=== PATIENT | male | born 1980 | race Caucasian/White ===

== ENCOUNTER 2018-04-17 18:55 | Emergency (ER) | payer MEDICAID ==
[~2018-04-17] VITALS: Ht 167.6 cm; Wt 79.2 kg
[~2018-04-17 18:55] MED LIST: CARB200T8; FLUO-84; GABA600T13; HYDR-4383 PO; IBUP-1986 PO
[2018-04-17 19:06] VITALS: BP 133/88
--- NOTE | 2018-04-17 21:05 | NUR ---
[facility] #[id number]
--- NOTE | 2018-04-17 21:05 | NUR ---
NO RESPONSE FROM LOBBY AFTER 3 ATTEMPTS TO ROOM, CALL MADE TO NUMBER ON FILE. DR CHAMPAGNE INFORMED OF ISABEL PAPPAS CURRENTLY BEING CONTACTED FOR [facility].
== END 2018-04-17 21:48 | disposition left against medical advice (07) ==
LOC: ER 18:55
DX: F43.10 Post-traumatic stress disorder, unspecified (principal); Z53.21 Procedure and treatment not carried out due to patient leaving prior to being seen by health care provider

== ENCOUNTER 2018-10-07 03:24 | Inpatient (IN) | payer MEDICAID ==
[~2018-10-07] VITALS: Ht 175.3 cm; Wt 95.5 kg
[2018-10-07] MEDS ORDERED: normal saline 1000ML IV soln IVB ONE ×2 (03:30→11:25)
[2018-10-07] MEDS ORDERED: LORazepam 2 mg/ml vial IV ONE ×2 (03:30→03:50)
[2018-10-07] MEDS ORDERED: OLANZapine **IM** 10 mg inj. IM ONE (03:40)
[2018-10-07 03:56] LABS: BASOPHILS % (AUTO) 0.3 % (0-1); EOSINOPHILS % (AUTO) 0.4 % (0-6); HEMATOCRIT 39.2 % (42.0-52.0); HEMOGLOBIN 13.4 g/dl (14.0-17.9); LYMPHOCYTES # (AUTO) 0.2 X10'3 (1.1-4.8); LYMPHOCYTES % (AUTO) 3.6 % (21-51); MEAN CORPUSCULAR HEMOGLOBIN 32.7 PG (27.0-31.0); MEAN CORPUSCULAR HGB CONC 34.1 g/dL (33.0-36.5); MEAN CORPUSCULAR VOLUME 95.9 FL (78-98); MEAN PLATELET VOLUME 8.5 FL (7.4-10.4); MONOCYTES # (AUTO) 0.1 X10'3 (0-0.9); MONOCYTES % (AUTO) 1.3 % (2-12); NEUTROPHILS # (AUTO) 4.4 X10'3 (1.8-7.7); NEUTROPHILS % (AUTO) 94.4 % (42-75); PLATELET COUNT 169 X10'3 (140-440); RED BLOOD COUNT 4.09 X10'6 (4.70-6.10); RED CELL DISTRIBUTION WIDTH 12.4 % (11.5-14.5); WHITE BLOOD COUNT 4.7 X10'3 (4.5-11.0)
[2018-10-07 04:12] LABS: ALANINE AMINOTRANSFERASE 123 U/L (12-78); ALBUMIN 3.2 G/DL (3.4-5.0); ALBUMIN/GLOBULIN RATIO 1.2 (1.1-1.5); ALKALINE PHOSPHATASE 141 IU/L (46-116); ANION GAP 14 (8-16); ASPARTATE AMINO TRANSFERASE 238 U/L (10-37); BILIRUBIN,TOTAL 1.2 MG/DL (0.1-1.0); BLOOD UREA NITROGEN 16 MG/DL (7-18); BUN/CREATININE RATIO 9.9 (5.4-32.0); CALCIUM 8.7 MG/DL (8.5-10.1); CHLORIDE 106 MMOL/L (99-107); CREATININE 1.61 MG/DL (0.60-1.10); GLUCOSE 65 MG/DL (70-104); POTASSIUM 3.3 MMOL/L (3.5-5.1); SODIUM 143 MMOL/L (135-145); TOTAL CARBON DIOXIDE 23.1 MMOL/L (24-32); TOTAL PROTEIN 5.9 G/DL (6.4-8.2); eGFR 48 ML/MIN
[2018-10-07 04:20] LABS: ETHANOL < 0.010 GM/DL (0.0-0.010); MAGNESIUM 1.6 MG/DL (1.5-2.4)
[2018-10-07] MEDS ORDERED: piperacillin/tazo 4.5gm/100ml 100 ML IV ONE (06:55)
[2018-10-07] MEDS ORDERED: piperacillin/tazo 4.5gm/100ml 100 ML IV SCH (06:55)
[2018-10-07 07:22] LABS: LIPASE 107 U/L (73-393)
[2018-10-07 07:27] LABS: PARTIAL THROMBOPLASTIN TIME 27 SECONDS (22-32)
[2018-10-07 08:38] LABS: CLARITY,URINE CLEAR (Clear); COLOR,URINE YELLOW (Yellow); GLUCOSE, URINE 100 mg/dl (Neg); KETONES,URINE NEGATIVE (Neg); LEUKOCYTE ESTERASE ,URINE NEGATIVE (Neg); NITRITES, URINE NEGATIVE (Neg); OCCULT BLOOD,URINE NEGATIVE (Neg); PROTEIN,URINE 100 mg/dl (Neg)
[2018-10-07 08:43] LABS: UA COLLECTION TYPE STRAIGHT CATH
[2018-10-07 08:44] LABS: AMORPHOUS URATES 1+; BACTERIA,URINE NONE SEEN /HPF (Neg); COARSE GRANULAR CAST 0-3 /LPF (NEGATIVE); MUCUS STRANDS FEW /LPF (Neg); RBC,URINE 0-2 /HPF (0-2); SPERM MODERATE /HPF (NEGATIVE); SQUAMOUS EPITHELIAL CELL,UR NONE SEEN /LPF (FEW); URINE AMPHETAMINE SCREEN POSITIVE (Neg); URINE BARBITUATE SCREEN NEGATIVE (Neg); URINE BENZODIAZEPINES SCREEN NEGATIVE (Neg); URINE CANNABINOID SCREEN POSITIVE (Neg); URINE COCAINE SCREEN NEGATIVE (Neg); URINE METHADONE SCREEN NEGATIVE (Neg); URINE OPIATE SCREEN POSITIVE (Neg); URINE PHENCYCLIDINE SCREEN NEGATIVE (Neg); WBC,URINE 0-4 /HPF (0-4)
[2018-10-07 08:55] LABS: ABG BASE EXCESS -0.3 mmol/L (-2.0-3.0); ABG HCO3 23.1 mmol/L (22.0-26.0); ABG PCO2 (T) 34.2 mmHg (35.0-45.0); ABG PH (T) 7.448 (7.350-7.450); ABG PO2 (T) 75.7 mmHg (83-108); ALLEN'S TEST Positive; FCOHb 0.8 % (0.5-1.5); FO2Hb 94.2 % (94-100); TOTAL HEMOGLOBIN 13.3 G/dl (14.0-17.9)
--- NOTE | 2018-10-07 11:07 | NUR ---
LP IN PROGRESS BY
[2018-10-07 12:30] LABS: GLUCOSE,CSF 88 MG/DL (40-75); TOTAL PROTEIN,CSF 34 MG/DL (15-45)
[2018-10-07 12:42] LABS: APPEARANCE,CSF CLEAR; CSF SUPERNATANT COLOR COLORLESS; CSF VOLUME 4.5 ML; TUBE# COUNTED 1
[2018-10-07 12:44] LABS: CSF RBC 62 /CU MM (0); CSF WBC CT 2 /CU MM (0-5)
[2018-10-07 12:45] LABS: APPEARANCE,CSF CLEAR; CSF RBC 47 /CU MM (0); CSF SUPERNATANT COLOR COLORLESS; CSF VOLUME 4.5 ML; CSF WBC CT 1 /CU MM (0-5); TUBE# COUNTED 4
[2018-10-07] MEDS ORDERED: magnesium hydroxide 30ml (MOM) UD suspension PO PRN (12:55)
[2018-10-07] MEDS ORDERED: mag hydrox/Alum hydrox/simeth 30ml oral suspension PO PRN (12:55)
[2018-10-07] MEDS ORDERED: ondansetron/PF 4mg/2ml inj IV PRN (12:55)
[2018-10-07] MEDS ORDERED: acetaminophen 325mg tablet PO PRN (12:55)
[2018-10-07 13:30] VITALS: BP 122/72
[2018-10-07] MEDS ORDERED: magnesium 2GM in 50ml NS 50 ML IV PRN (13:30)
[2018-10-07] MEDS ORDERED: potassium Cl 20 mEq SR tablet PO PRN ×2 (13:30)
[2018-10-07] MEDS ORDERED: acetaminophen 650mg rectal suppository RC PRN (13:30)
[2018-10-07] MEDS ORDERED: magnesium Cl slow-release 64mg tablet PO PRN (13:30)
[2018-10-07] MEDS ORDERED: magnesium 4gm in 100ml NS 100 ML IV PRN (13:30)
[2018-10-07] MEDS ORDERED: potassium CL 10mEq/100ml bag 100 ML IV PRN ×2 (13:30)
[2018-10-07] MEDS: normal saline 1000ml 1,000 ML IV SCH (14:27)
--- NOTE | 2018-10-07 18:29 | NUR ---
Problems reprioritized. Patient report given, questions answered & plan of care reviewed with [place] EL.
--- NOTE | 2018-10-07 20:24 | NUR ---
I received an order to restart pt's home Meds of Tegretol and gabapentin but the patient is unable to tell me the exact dose and frequency of the gabapentin. Pharmacy wants us to verify with the patient when he is awake or call his pharmacy. Do not start gabapentin until we have confirmation if it is prn or a give tid.
[2018-10-08] MEDS: normal saline 1000ml 1,000 ML IV SCH ×3 (03:41→19:49)
[2018-10-08] MEDS: carBAMazepine 100mg chewable tablet PO SCH ×3 (03:52→19:23)
[2018-10-08 05:48] LABS: BASOPHILS % (AUTO) 0.2 % (0-1); EOSINOPHILS # (AUTO) 0.1 X10'3 (0-0.9); HEMATOCRIT 38.1 % (42.0-52.0); HEMOGLOBIN 12.8 g/dl (14.0-17.9); LYMPHOCYTES # (AUTO) 1.6 X10'3 (1.1-4.8); LYMPHOCYTES % (AUTO) 13.3 % (21-51); MEAN CORPUSCULAR HEMOGLOBIN 32.4 PG (27.0-31.0); MEAN CORPUSCULAR HGB CONC 33.6 g/dL (33.0-36.5); MEAN CORPUSCULAR VOLUME 96.4 FL (78-98); MEAN PLATELET VOLUME 9.2 FL (7.4-10.4); MONOCYTES % (AUTO) 8.5 % (2-12); NEUTROPHILS # (AUTO) 9.1 X10'3 (1.8-7.7); PLATELET COUNT 134 X10'3 (140-440); RED BLOOD COUNT 3.95 X10'6 (4.70-6.10); RED CELL DISTRIBUTION WIDTH 13.3 % (11.5-14.5); WHITE BLOOD COUNT 11.9 X10'3 (4.5-11.0)
[2018-10-08 06:00] VITALS: BP 120/70
[2018-10-08 06:33] LABS: ALANINE AMINOTRANSFERASE 96 U/L (12-78); ALBUMIN 2.5 G/DL (3.4-5.0); ALKALINE PHOSPHATASE 86 IU/L (46-116); ANION GAP 5 (8-16); ASPARTATE AMINO TRANSFERASE 77 U/L (10-37); BILIRUBIN,DIRECT 0.3 MG/DL (0-0.3); BILIRUBIN,TOTAL 0.8 MG/DL (0.1-1.0); BLOOD UREA NITROGEN 17 MG/DL (7-18); CALCIUM 7.7 MG/DL (8.5-10.1); CHLORIDE 110 MMOL/L (99-107); CREATININE 0.81 MG/DL (0.60-1.10); GLUCOSE 89 MG/DL (70-104); MAGNESIUM 1.8 MG/DL (1.5-2.4); POTASSIUM 3.8 MMOL/L (3.5-5.1); SODIUM 143 MMOL/L (135-145); TOTAL CARBON DIOXIDE 27.9 MMOL/L (24-32); eGFR > 90 ML/MIN
[2018-10-08] MEDS: K and/or MAG REPLACEMENT MC SCH (08:00)
[2018-10-08] MEDS ORDERED: levetiracetam 250mg tablet PO SCH (11:10)
--- NOTE | 2018-10-08 11:19 | NUR ---
called 3rd floor mental health nurse for eval of pt, nurse stated that she did not know when dr marquis was going to arrive but she would let him know
[2018-10-08] MEDS ORDERED: FLUO10CA51 (16:03)
[2018-10-08] MEDS ORDERED: FLUO10CA18 PO (16:05)
[2018-10-08] MEDS ORDERED: DULO20CA50 PO (16:06)
[2018-10-08] MEDS ORDERED: NAPR-56 PO (16:08)
[2018-10-08] MEDS ORDERED: AMLO5TAB16 PO (16:11)
[2018-10-08 18:00] VITALS: BP 132/87
--- NOTE | 2018-10-08 18:30 | NUR ---
Received report from [place] EL, assumed care of patient with Saray EL.
[2018-10-08] MEDS ORDERED: FLUoxetine 10mg capsule PO ONE (18:40)
[2018-10-08] MEDS ORDERED: duloxetine 20mg capsule.DR PO ONE (18:40)
[2018-10-08] MEDS ORDERED: gabapentin 400mg capsule PO ONE ×2 (18:45→21:00)
--- NOTE | 2018-10-08 19:00 | NUR ---
Dr. Wray into see patient, bedside sitter discontinued. Addendum: 10/09/18 at 0611 by Gloria Man RN Amended: Links added.
--- NOTE | 2018-10-08 19:09 | NUR ---
Violeta reprioritized. Patient report given, questions answered & plan of care reviewed with SIENNA So.
[2018-10-08] MEDS: levetiracetam 250mg tablet PO SCH (19:22)
[2018-10-08] MEDS ORDERED: gabapentin 400mg capsule PO SCH (21:00)
[2018-10-08 22:00] VITALS: BP 131/85
[2018-10-09] MEDS: normal saline 1000ml 1,000 ML IV SCH ×2 (04:29→14:06)
[2018-10-09 06:00] VITALS: BP 120/70
--- NOTE | 2018-10-09 06:00 | NUR ---
Gave report to Antonette EL, with Saray EL.
--- NOTE | 2018-10-09 06:30 | NUR ---
received report from monty temple
[2018-10-09 06:43] LABS: BASOPHILS % (AUTO) 0.3 % (0-1); EOSINOPHILS # (AUTO) 0.1 X10'3 (0-0.9); EOSINOPHILS % (AUTO) 1.9 % (0-6); HEMATOCRIT 38.5 % (42.0-52.0); LYMPHOCYTES # (AUTO) 1.8 X10'3 (1.1-4.8); LYMPHOCYTES % (AUTO) 26.8 % (21-51); MEAN CORPUSCULAR HEMOGLOBIN 32.5 PG (27.0-31.0); MEAN CORPUSCULAR HGB CONC 33.7 g/dL (33.0-36.5); MEAN CORPUSCULAR VOLUME 96.4 FL (78-98); MEAN PLATELET VOLUME 9.6 FL (7.4-10.4); MONOCYTES # (AUTO) 0.5 X10'3 (0-0.9); NEUTROPHILS # (AUTO) 4.1 X10'3 (1.8-7.7); PLATELET COUNT 143 X10'3 (140-440); WHITE BLOOD COUNT 6.6 X10'3 (4.5-11.0)
[2018-10-09 06:51] LABS: ALBUMIN 2.6 G/DL (3.4-5.0); ANION GAP 8 (8-16); BLOOD UREA NITROGEN 13 MG/DL (7-18); BUN/CREATININE RATIO 18.8 (5.4-32.0); CALCIUM 7.8 MG/DL (8.5-10.1); CHLORIDE 109 MMOL/L (99-107); CREATININE 0.69 MG/DL (0.60-1.10); GLUCOSE 82 MG/DL (70-104); MAGNESIUM 1.6 MG/DL (1.5-2.4); POTASSIUM 3.6 MMOL/L (3.5-5.1); SODIUM 145 MMOL/L (135-145); TOTAL CARBON DIOXIDE 28.5 MMOL/L (24-32); eGFR > 90 ML/MIN
[2018-10-09] MEDS: K and/or MAG REPLACEMENT MC SCH (06:57)
[2018-10-09] MEDS: carBAMazepine 100mg chewable tablet PO SCH ×2 (08:00→19:36)
[2018-10-09] MEDS: levetiracetam 250mg tablet PO SCH (08:13)
[2018-10-09] MEDS: gabapentin 400mg capsule PO SCH ×3 (08:14→19:37)
[2018-10-09] MEDS: duloxetine 30mg CAPSULE.DR PO SCH (08:14)
[2018-10-09] MEDS: FLUoxetine 10mg capsule PO SCH (08:15)
[2018-10-09 10:00] VITALS: BP 160/103
[2018-10-09] MEDS ORDERED: non-formulary drug (Gabapentin 2 TAB) SCH (13:00)
[2018-10-09 18:00] VITALS: BP 137/91
--- NOTE | 2018-10-09 18:19 | NUR ---
gave report to monty sims
--- NOTE | 2018-10-09 18:20 | NUR ---
Patient in room ORTHO 4008. I have received report from SIENNA Whitman and had the opportunity to ask questions and assume patient care. Patient is sitting up in bed calmly eating his dinner, he is A&O x3 and MALDONADO. He has a sitter at bedside, I will continue to monitor.
[2018-10-09] MEDS: vancomycin inj 1,250 MG in normal saline 250ml IV soln 250 ML IV SCH (21:24)
[2018-10-09 22:00] VITALS: BP 118/65
[2018-10-10] MEDS: piperacillin/tazo 3.375gm/50ml 50 ML IV SCH ×2 (01:12→07:57)
[2018-10-10] MEDS: normal saline 1000ml 1,000 ML IV SCH ×3 (01:28→21:28)
[2018-10-10] MEDS: vancomycin inj 1,250 MG in normal saline 250ml IV soln 250 ML IV SCH (05:13)
[2018-10-10 05:46] LABS: ALANINE AMINOTRANSFERASE 73 U/L (12-78); ALBUMIN 2.6 G/DL (3.4-5.0); ALBUMIN/GLOBULIN RATIO 0.9 (1.1-1.5); ALKALINE PHOSPHATASE 75 IU/L (46-116); ANION GAP 6 (8-16); ASPARTATE AMINO TRANSFERASE 27 U/L (10-37); BILIRUBIN,TOTAL 0.4 MG/DL (0.1-1.0); BLOOD UREA NITROGEN 12 MG/DL (7-18); BUN/CREATININE RATIO 15.6 (5.4-32.0); CALCIUM 8.4 MG/DL (8.5-10.1); CHLORIDE 109 MMOL/L (99-107); CREATININE 0.77 MG/DL (0.60-1.10); GLUCOSE 85 MG/DL (70-104); MAGNESIUM 1.6 MG/DL (1.5-2.4); PHOSPHORUS 4.2 MG/DL (2.3-4.5); POTASSIUM 3.8 MMOL/L (3.5-5.1); SODIUM 145 MMOL/L (135-145); TOTAL CARBON DIOXIDE 30.3 MMOL/L (24-32); TOTAL PROTEIN 5.4 G/DL (6.4-8.2); eGFR > 90 ML/MIN
[2018-10-10 05:48] LABS: BASOPHILS % (AUTO) 0.2 % (0-1); EOSINOPHILS # (AUTO) 0.1 X10'3 (0-0.9); EOSINOPHILS % (AUTO) 1.4 % (0-6); HEMATOCRIT 37.8 % (42.0-52.0); HEMOGLOBIN 12.9 g/dl (14.0-17.9); LYMPHOCYTES # (AUTO) 2.2 X10'3 (1.1-4.8); LYMPHOCYTES % (AUTO) 37.8 % (21-51); MEAN CORPUSCULAR HEMOGLOBIN 32.5 PG (27.0-31.0); MEAN CORPUSCULAR HGB CONC 34.1 g/dL (33.0-36.5); MEAN CORPUSCULAR VOLUME 95.3 FL (78-98); MEAN PLATELET VOLUME 9.4 FL (7.4-10.4); MONOCYTES # (AUTO) 0.4 X10'3 (0-0.9); NEUTROPHILS # (AUTO) 3.1 X10'3 (1.8-7.7); NEUTROPHILS % (AUTO) 53.6 % (42-75); PLATELET COUNT 160 X10'3 (140-440); RED BLOOD COUNT 3.97 X10'6 (4.70-6.10); RED CELL DISTRIBUTION WIDTH 12.8 % (11.5-14.5); WHITE BLOOD COUNT 5.8 X10'3 (4.5-11.0)
[2018-10-10 06:00] VITALS: BP 166/95
--- NOTE | 2018-10-10 06:16 | NUR ---
received report from monty sims
--- NOTE | 2018-10-10 06:28 | NUR ---
Problems reprioritized. Patient report given, questions answered & plan of care reviewed with SIENNA Whitman.
[2018-10-10] MEDS: K and/or MAG REPLACEMENT MC SCH (07:47)
[2018-10-10] MEDS: FLUoxetine 10mg capsule PO SCH (07:52)
[2018-10-10] MEDS: amLODIPine 5mg tablet PO SCH (07:53)
[2018-10-10] MEDS: duloxetine 30mg CAPSULE.DR PO SCH (07:54)
[2018-10-10] MEDS: gabapentin 400mg capsule PO SCH ×3 (07:54→20:23)
--- NOTE | 2018-10-10 07:54 | NUR ---
REFERRAL/DISCHARGE COORDINATION/COLLATERAL: Dr. Wray met with this health science writer and requested SW to meet w/ pt to discuss discharge needs and community resources available to reduce recidivism and deescalate SI/Crisis. SW met w/ pt, who reports SI, however he could not provide clear plan or intent. Pt reports hx of suicide attempt by overdose and cutting (x3). SW informed pt of resource [facility] for registered criminal offenders. Pt reports awareness of this program, however did not appear eager to enter tx. SW informed pt this may be the only temporary housing resource available by time of discharge. SW informed pt of various referrals available and scheduled to meet with pt in the morning on 10/10/2018. Late note entry for 10/09/2018 @ 16:00hours Joyce Tobin, Confidential Secretary TANK MAKER WOOD [id number] Supervised by Dileep Ivy, [id number]
[2018-10-10] MEDS: levetiracetam 250mg tablet PO SCH (07:55)
[2018-10-10] MEDS: carBAMazepine 100mg chewable tablet PO SCH ×2 (07:58→20:00)
[2018-10-10] MEDS ORDERED: FLUoxetine 10mg capsule PO SCH (08:00)
[2018-10-10] MEDS ORDERED: duloxetine 20mg capsule.DR PO SCH (08:00)
--- NOTE | 2018-10-10 08:00 | NUR ---
REFERRALS SW met w/ pt in his room and provided him with AMANDA that listed [facility] Probation, [facility] Funeral Home Location Manager, [facility], [facility], Community Health Advocate, [facility] and Social Security Administration. SW provided pt w/ [facility] referral and pt signed ROIs for program/entry. SW provided pt with SSI/SSA paperwork for disability entitlements due to fx impairments caused by maladaptive bx's and limited social/coping skill set. SW provided pt w/ Community Health Advocate, [facility] [employer] Home Location Manager and Mobile Crisis Team brochures for services upon discharge. SW requested pt to complete SSI/SSA paperwork and agreed to meet w/ pt to look over completed paperwork if requested by Dr. Wray. SW informed pt that SW would consult w/ Dr. Wray and meet with assigned Hospital Bridge Game Director, Luisa. SW faxed [facility] referral. Joyce Tobin, Coagulating Drying Supervisor RHEOSTAT ASSEMBLER [id number] Supervised by Dileep Ivy [id number] Addendum: 10/10/18 at 1547 by Joyce Tobin SS Addition to note: BRANDO made TC to Olivia Parr at [phone] and left message regarding pt need for transitional housing/tx through [facility] in [place]. BRANDO left contact information for [facility] and this blurb writer, requesting return contact. Joyce Tobin, Coagulating Drying Supervisor RHEOSTAT ASSEMBLER [id number] Supervised by Dileep Ivy [id number]
[2018-10-10 10:00] VITALS: BP 131/88
--- NOTE | 2018-10-10 15:16 | NUR ---
hospitalist called to let me know that pt has been medically cleared to be eval by [facility] notified social media analyst that pt is ready for [facility]
[2018-10-10] MEDS: nicotine 21mg patch - 24 hr TD SCH (15:22)
[2018-10-10 18:00] VITALS: BP 130/87
--- NOTE | 2018-10-10 18:17 | NUR ---
GAVE REPORT TO TRACY Zheng RN
--- NOTE | 2018-10-10 18:19 | NUR ---
Patient in room ORTHO 4008. I have received report from SIENNA Whitman and had the opportunity to ask questions and assume patient care. Patient is A&Ox3, MALDONADO and is appropriate. He is talking with [facility] at this time, I will continue to monitor.
--- NOTE | 2018-10-10 19:00 | NUR ---
Per [facility], patient has been placed on a 5150
[2018-10-10] MEDS ORDERED: VANCOMYCIN LEVEL IV ONE (20:30)
[2018-10-11] MEDS: normal saline 1000ml 1,000 ML IV SCH ×3 (00:24→13:32)
[2018-10-11 06:00] VITALS: BP 147/80
--- NOTE | 2018-10-11 06:00 | NUR ---
Patient in room ORTHO 4008. I have received report from and had the opportunity to ask questions and assume patient care Marce Salazar RN.
[2018-10-11 06:01] LABS: BASOPHILS % (AUTO) 0.5 % (0-1); EOSINOPHILS # (AUTO) 0.1 X10'3 (0-0.9); HEMATOCRIT 40.6 % (42.0-52.0); LYMPHOCYTES # (AUTO) 2.1 X10'3 (1.1-4.8); MEAN CORPUSCULAR HEMOGLOBIN 32.7 PG (27.0-31.0); MEAN CORPUSCULAR HGB CONC 34.6 g/dL (33.0-36.5); MEAN CORPUSCULAR VOLUME 94.6 FL (78-98); MONOCYTES # (AUTO) 0.4 X10'3 (0-0.9); MONOCYTES % (AUTO) 7.2 % (2-12); NEUTROPHILS # (AUTO) 2.5 X10'3 (1.8-7.7); NEUTROPHILS % (AUTO) 49.3 % (42-75); PLATELET COUNT 189 X10'3 (140-440); RED BLOOD COUNT 4.29 X10'6 (4.70-6.10); RED CELL DISTRIBUTION WIDTH 12.9 % (11.5-14.5); WHITE BLOOD COUNT 5.1 X10'3 (4.5-11.0)
[2018-10-11 06:02] LABS: ALANINE AMINOTRANSFERASE 68 U/L (12-78); ALBUMIN 2.8 G/DL (3.4-5.0); ALBUMIN/GLOBULIN RATIO 0.9 (1.1-1.5); ALKALINE PHOSPHATASE 84 IU/L (46-116); ANION GAP 7 (8-16); ASPARTATE AMINO TRANSFERASE 24 U/L (10-37); BILIRUBIN,TOTAL 0.3 MG/DL (0.1-1.0); BLOOD UREA NITROGEN 6 MG/DL (7-18); BUN/CREATININE RATIO 7.4 (5.4-32.0); CALCIUM 8.5 MG/DL (8.5-10.1); CHLORIDE 108 MMOL/L (99-107); CREATININE 0.81 MG/DL (0.60-1.10); GLUCOSE 88 MG/DL (70-104); MAGNESIUM 1.5 MG/DL (1.5-2.4); PHOSPHORUS 3.5 MG/DL (2.3-4.5); POTASSIUM 3.6 MMOL/L (3.5-5.1); SODIUM 146 MMOL/L (135-145); TOTAL CARBON DIOXIDE 31.5 MMOL/L (24-32); TOTAL PROTEIN 5.8 G/DL (6.4-8.2); eGFR > 90 ML/MIN
--- NOTE | 2018-10-11 06:21 | NUR ---
Problems reprioritized. Patient report given, questions answered & plan of care reviewed with SIENNA Bartholomew.
[2018-10-11] MEDS: K and/or MAG REPLACEMENT MC SCH (08:00)
[2018-10-11] MEDS: carBAMazepine 100mg chewable tablet PO SCH ×2 (08:00→20:00)
[2018-10-11] MEDS: gabapentin 400mg capsule PO SCH ×3 (08:42→13:32)
[2018-10-11] MEDS: nicotine 21mg patch - 24 hr TD SCH (08:42)
[2018-10-11] MEDS: levetiracetam 250mg tablet PO SCH (08:43)
[2018-10-11] MEDS: duloxetine 30mg CAPSULE.DR PO SCH (08:43)
[2018-10-11] MEDS: FLUoxetine 10mg capsule PO SCH (08:44)
[2018-10-11] MEDS: amLODIPine 5mg tablet PO SCH (08:44)
[2018-10-11 18:30] VITALS: BP 121/65
--- NOTE | 2018-10-11 18:46 | NUR ---
Patient in room ORTHO 4008. I have received report from SIENNA Bartholomew and had the opportunity to ask questions and assume patient care. Addendum: 10/11/18 at 1847 by Marya Gutiérrez RN Amended: Links added.
[2018-10-11] MEDS ORDERED: gabapentin 400mg capsule PO ONE (20:55)
[2018-10-11 22:00] VITALS: BP 133/84
--- NOTE | 2018-10-12 00:50 | NUR ---
no iv pt refuses to have restarted. md was paged earlier. Addendum: 10/12/18 at 0051 by Marya Gutiérrez RN Amended: Links added.
[2018-10-12 06:00] VITALS: BP 138/89
--- NOTE | 2018-10-12 06:15 | NUR ---
Patient in room ORTHO 4008. I have received report from JUNIOR EL and had the opportunity to ask questions and assume patient care.
--- NOTE | 2018-10-12 06:24 | NUR ---
Problems reprioritized. Patient report given, questions answered & plan of care reviewed with SIENNA Eller. Addendum: 10/12/18 at 0624 by Marya Gutiérrez RN Amended: Links added.
[2018-10-12 06:27] LABS: BASOPHILS % (AUTO) 0.5 % (0-1); EOSINOPHILS # (AUTO) 0.1 X10'3 (0-0.9); EOSINOPHILS % (AUTO) 1.7 % (0-6); HEMATOCRIT 44.5 % (42.0-52.0); HEMOGLOBIN 15.4 g/dl (14.0-17.9); LYMPHOCYTES # (AUTO) 2.3 X10'3 (1.1-4.8); LYMPHOCYTES % (AUTO) 32.2 % (21-51); MEAN CORPUSCULAR HEMOGLOBIN 32.2 PG (27.0-31.0); MEAN CORPUSCULAR HGB CONC 34.7 g/dL (33.0-36.5); MONOCYTES # (AUTO) 0.7 X10'3 (0-0.9); NEUTROPHILS # (AUTO) 4.1 X10'3 (1.8-7.7); NEUTROPHILS % (AUTO) 56.6 % (42-75); PLATELET COUNT 222 X10'3 (140-440); RED BLOOD COUNT 4.79 X10'6 (4.70-6.10); RED CELL DISTRIBUTION WIDTH 12.5 % (11.5-14.5); WHITE BLOOD COUNT 7.2 X10'3 (4.5-11.0)
--- NOTE | 2018-10-12 06:30 | NUR ---
NICOTINE PATCH FELL OFF DURING SHOWER, DISPOSED IN PROPER WASTE CONTAINER.
[2018-10-12 07:22] LABS: ALANINE AMINOTRANSFERASE 70 U/L (12-78); ALBUMIN/GLOBULIN RATIO 0.9 (1.1-1.5); ALKALINE PHOSPHATASE 88 IU/L (46-116); ANION GAP 9 (8-16); ASPARTATE AMINO TRANSFERASE 39 U/L (10-37); BILIRUBIN,TOTAL 0.4 MG/DL (0.1-1.0); BLOOD UREA NITROGEN 8 MG/DL (7-18); BUN/CREATININE RATIO 10.1 (5.4-32.0); CALCIUM 8.3 MG/DL (8.5-10.1); CHLORIDE 105 MMOL/L (99-107); CREATININE 0.79 MG/DL (0.60-1.10); GLUCOSE 89 MG/DL (70-104); MAGNESIUM 1.7 MG/DL (1.5-2.4); PHOSPHORUS 3.4 MG/DL (2.3-4.5); POTASSIUM 3.4 MMOL/L (3.5-5.1); SODIUM 143 MMOL/L (135-145); TOTAL CARBON DIOXIDE 29.1 MMOL/L (24-32); TOTAL PROTEIN 6.3 G/DL (6.4-8.2); eGFR > 90 ML/MIN
[2018-10-12] MEDS: gabapentin 400mg capsule PO SCH ×2 (07:38→13:11)
[2018-10-12] MEDS: duloxetine 30mg CAPSULE.DR PO SCH (07:38)
[2018-10-12] MEDS: amLODIPine 5mg tablet PO SCH (07:38)
[2018-10-12] MEDS: levetiracetam 250mg tablet PO SCH (07:38)
[2018-10-12] MEDS: carBAMazepine 100mg chewable tablet PO SCH (07:39)
[2018-10-12] MEDS: nicotine 21mg patch - 24 hr TD SCH (07:39)
[2018-10-12] MEDS: FLUoxetine 10mg capsule PO SCH (07:39)
[2018-10-12] MEDS: K and/or MAG REPLACEMENT MC SCH (08:00)
--- NOTE | 2018-10-12 08:21 | NUR ---
PATIENT REQUESTING TO "GET OUT OF 5150", WANTS TO LEAVE HOSPITAL, NOT SURE WHERE HE WILL GO. WILL NOTIFY TIE IN HAND AND .
[2018-10-12] MEDS ORDERED: NICO-687 TD (09:40)
[2018-10-12] MEDS ORDERED: CARB100T15 PO (09:40)
[2018-10-12] MEDS ORDERED: potassium Cl 20 mEq SR tablet PO ONE (09:40)
[2018-10-12] MEDS ORDERED: LEVE250T PO (09:40)
[2018-10-12 10:00] VITALS: BP 142/80
[2018-10-12 11:43] LABS: HSV 1 PCR Negative (Negative); HSV 2 PCR Negative (Negative)
[2018-10-12] MEDS: normal saline 1000ml 1,000 ML IV SCH (13:12)
--- NOTE | 2018-10-12 18:00 | NUR ---
Problems reprioritized. Patient report given, questions answered & plan of care reviewed with [place] EL.
== END 2018-10-12 19:31 | DRG 52 ==
LOC: ER 03:25 → ORTHO 4S 13:39 → OBSVTOIN 13:39 → CMPBEDREQ 10-09 15:15
PROVIDERS: ADMIT Internal Medicine; ATTEND Family Medicine
PROC: 009U3ZZ Drainage of Spinal Canal, Percutaneous Approach (ICD-10-PCS; principal; 2018-10-07)
DX: G92 Toxic encephalopathy (principal); N17.9 Acute kidney failure, unspecified; R45.851 Suicidal ideations; F32.9 Major depressive disorder, single episode, unspecified; F12.10 Cannabis abuse, uncomplicated; F15.10 Other stimulant abuse, uncomplicated; F43.10 Post-traumatic stress disorder, unspecified; G89.29 Other chronic pain; M54.9 Dorsalgia, unspecified; R00.0 Tachycardia, unspecified; R06.4 Hyperventilation; R74.8 Abnormal levels of other serum enzymes; G40.909 Epilepsy, unspecified, not intractable, without status epilepticus; I10 Essential (primary) hypertension; K80.20 Calculus of gallbladder without cholecystitis without obstruction; Z63.8 Other specified problems related to primary support group; Z79.899 Other long term (current) drug therapy; Z90.49 Acquired absence of other specified parts of digestive tract; Y92.89 Other specified places as the place of occurrence of the external cause
CPT/HCPCS: 36415; 36600; 62270; 70450; 71045; 74176; 76700; 80048; 80053; 80076; 80156; 80305; 80320; 81001; 82140; 82803; 82945; 83605; 83690; 83735; 83880; 84100; 84145; 84157; 84484; 85018; 85025; 85610; 85730; 87015; 87040; 87070; 87081; 87529; 89051; 93005; 93306; 96361; 96365; 96366; 96375; 96376; 99285; G0378; J2060; J2543; J3370; J3480; J7030; J7050

== ENCOUNTER 2018-10-12 16:16 | Inpatient (IN) | payer MEDICAID ==
[~2018-10-12] VITALS: Ht 175.3 cm; Wt 98.0 kg
[~2018-10-12 16:16] MED LIST changes: +AMLO5TAB16 PO; +CARB100T15 PO; -CARB200T8; +DULO20CA50 PO; -FLUO-84; +FLUO10CA18 PO; -HYDR-4383 PO; +LEVE250T PO; +NAPR-56 PO; +NICO-687 TD
[2018-10-12] MEDS ORDERED: acetaminophen 325mg tablet PO PRN ×2 (19:50)
[2018-10-12] MEDS ORDERED: mag hydrox/Alum hydrox/simeth 30ml oral suspension PO PRN (19:55)
[2018-10-12] MEDS ORDERED: magnesium hydroxide 30ml (MOM) UD suspension PO PRN (19:55)
[2018-10-12 20:00] VITALS: BP 125/89
[2018-10-12] MEDS ORDERED: NICOTINE POLACRILEX 4 MG LOZENGE BC PRN (20:00)
[2018-10-12] MEDS ORDERED: NICOTINE POLACRILEX 2 MG LOZENGE BC PRN (20:55)
[2018-10-12] MEDS: gabapentin 400mg capsule PO SCH (21:43)
--- NOTE | 2018-10-13 03:23 | NUR ---
Admission Note: Pt. transferred to the unit from Ortho/Neuro at 1930 in a w/c accompanied by radhika Jones and security. Pt. showered and safety check/belongings completed by radhika Jones. Per nurse-nurse report, pt. lives with his sister and was brought to the ER on 10/07/18 with c/o anxiety after using some synthetic marijuana and methamphetamines. Toxicology screen was positive for opiates, amphetamines, and cannabinoids. In the ER pt. became tachycardic, was hyperventilating, reported muscle tension, and epigastric pain. He was diagnosed with toxic metabolic encephalopathy and was admitted to Ortho/Neuro for treatment. Pt. had an elevated procalcitonin level and was treated with prophylactic ABTs. Pt. has a medical history of chronic depression, PTSD (possibly r/t time spent in long-term), Bipolar, htn, seizure D/O, and chronic pain. Pt. is currently depressed, however denies S/I at this time. He is cooperative and compliant with medications, reports that he wants help. Nicotine patch removed at HS. Skin check completed by two RN's; pt. has abrasions present on rt. great toe and bilateral heels. Areas appear to be an old blisters, skin CDI, pictures obtained and placed in pt. chart.
[2018-10-13 08:00] VITALS: BP 145/89
[2018-10-13] MEDS: nicotine 21mg patch - 24 hr TD SCH (08:16)
[2018-10-13] MEDS: amLODIPine 5mg tablet PO SCH (08:17)
[2018-10-13] MEDS: gabapentin 400mg capsule PO SCH ×3 (08:17→20:49)
[2018-10-13] MEDS: duloxetine 20mg capsule.DR PO SCH (08:17)
[2018-10-13] MEDS: levetiracetam 250mg tablet PO SCH (08:29)
[2018-10-13] MEDS: FLUoxetine 10mg capsule PO SCH (08:29)
[2018-10-13 08:42] LABS: CHOL/HDL RATIO 4.2 (0.00-4.99); CHOLESTEROL 146 MG/DL (0-200); HDL CHOLESTEROL 35 MG/DL (35-60); LDL CHOLESTEROL 99 MG/DL (50-100); TRIGLYCERIDES 125 MG/DL (20-135)
[2018-10-13] MEDS ORDERED: tuberculin, purif. prot. deriv. 5 units/0.1ml ID ONE (10:00)
--- NOTE | 2018-10-13 16:09 | NUR ---
Nursing Progress Note: LING Client on involuntary status for DTS. Report received from Shaina Buckley RN with use of SBAR. Why are they here: Pt admitted on a 5150 for DTS. Pt transferred to the unit from Ortho/Neuro. Pt. lives with his sister and was brought to the ER on 10/07/18 c/o anxiety after using some synthetic marijuana and methamphetamines. Toxicology screen was positive for opiates, amphetamines, and cannabinoids. In the ER pt. became tachycardic, was hyperventilating, reported muscle tension, and epigastric pain. He was diagnosed with toxic metabolic encephalopathy and was admitted to Ortho/Neuro for treatment. Pt. had an elevated procalcitonin level and was treated with prophylactic ABTs. Pt. has a medical history of chronic depression, PTSD (possibly r/t time spent in fpc), Bipolar, htn, seizure D/O, and chronic pain. Assessment What has happened this shift: Pt was resting in bed at change of shift. He is wearing green scrubs and his personal hat. He has a pleasant affect and answers questions appropriately. 1:1 bedside assessment done at the bedside. Pt has fair hygiene and has a majority of his body covered in tattoos. He reports pain in his lower back and knees (5/10). He reports that it is chronic pain from a weight lifting injury in 1998. He reports feeling depressed today. No plan or intent mentioned. Pt spends most of his day in bed napping. S/I, H/I: Fleeting thoughts of SI, no plan/intent A/VH: denies Sleep: 7hrs NOC ADL's: Self Group attendance: Were Meds taken: Yes Any med S/E: None observed or reported Mental Status Exam Appearance: good hygiene, green scrubs Eye contact: direct Behavior: Appropriate Speech: Clear, Normal rate & rhythm Mood: depressed Affect: flat Thought process: linear Thought Content: goal oriented Cognition: A & O X3 Insight: fair Judgment: poor Interventions: PRN's used: None Therapeutic interventions: provided therapeutic communication and active listening; medication education, administration, and monitoring for effects, reminders to go to groups; Q15 min safety checks. Restraints/seclusion/emergency medication: None Justification of Continued Inpatient Treatment: Pt is unable to make a viable safety plan. Requires ongoing monitoring of patient behaviors. Continued therapeutic support and medication management needed to provide stabilization, prevent decompensation, and decreasing risk to patient and readmittance to inpatient unit.
--- NOTE | 2018-10-13 19:00 | NUR ---
Nursing Note: Pt. in the BR at the beginning of the shift with nausea and throws up in the toilet. He reports that he has felt this way since lunchtime today, and he was not able to eat dinner tonight. Pt. states, "I have been in bed all day and I felt cold in my bones." V/S obtained and WNL, and pt. denies any other s/s of withdrawal, states, "I have had withdrawals before but it was different than this, and I wasn't using very much this time." PRN Zofran administered with effectiveness, and pt. encouraged to stay hydrated and accepted a pitcher of ice water with juice. No other episodes of N/V exhibited during the shift, however pt. does accept PRN Maalox at HS, will continue to monitor.
[2018-10-13] MEDS ORDERED: ondansetron 4mg rapidly disintigrating tab PO ONE (19:05)
[2018-10-13 20:00] VITALS: BP 122/85
[2018-10-13] MEDS: hydrOXYzine 25 MG tablet PO PRN (20:49)
[2018-10-13] MEDS: cloNIDine 0.1 mg tablet PO SCH (20:51)
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
[2018-10-14 08:00] VITALS: BP 119/73
[2018-10-14] MEDS: cloNIDine 0.1 mg tablet PO SCH ×2 (08:00→20:00)
[2018-10-14] MEDS: duloxetine 20mg capsule.DR PO SCH (08:22)
[2018-10-14] MEDS: gabapentin 400mg capsule PO SCH ×3 (08:23→20:53)
[2018-10-14] MEDS: amLODIPine 5mg tablet PO SCH (08:25)
[2018-10-14] MEDS: nicotine 21mg patch - 24 hr TD SCH (08:26)
[2018-10-14] MEDS: levetiracetam 250mg tablet PO SCH (08:35)
[2018-10-14] MEDS: FLUoxetine 10mg capsule PO SCH (08:35)
--- NOTE | 2018-10-14 10:24 | NUR ---
DISCHARGE PLANNING: Nelliearmondderic Henriquez at [facility] was out of the office on Tuesday but will be returning her messages on Tuesday, LM asking if referral was received, status of referral, and if pt has received services from them in the past, left KM Tobin's contact info. Phoned [facility], spoke w/ Natalee, she checked and pt is not on the list yet , next update is . Natalee referred me to Jada Alex @ [phone] LM similar to above. SUDHEER Carmen
[2018-10-14 12:03] LABS: BASOPHILS % (AUTO) 0.3 % (0-1); EOSINOPHILS # (AUTO) 0.1 X10'3 (0-0.9); HEMATOCRIT 47.7 % (42.0-52.0); HEMOGLOBIN 16.6 g/dl (14.0-17.9); LYMPHOCYTES # (AUTO) 1.6 X10'3 (1.1-4.8); MEAN CORPUSCULAR HEMOGLOBIN 32.6 PG (27.0-31.0); MEAN CORPUSCULAR HGB CONC 34.8 g/dL (33.0-36.5); MEAN CORPUSCULAR VOLUME 93.6 FL (78-98); MEAN PLATELET VOLUME 8.8 FL (7.4-10.4); MONOCYTES # (AUTO) 0.9 X10'3 (0-0.9); MONOCYTES % (AUTO) 12.6 % (2-12); NEUTROPHILS # (AUTO) 4.4 X10'3 (1.8-7.7); NEUTROPHILS % (AUTO) 63.1 % (42-75); PLATELET COUNT 240 X10'3 (140-440); RED CELL DISTRIBUTION WIDTH 12.6 % (11.5-14.5); WHITE BLOOD COUNT 7.1 X10'3 (4.5-11.0)
[2018-10-14] MEDS: loperamide 2mg capsule PO PRN ×2 (12:42→19:19)
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
[2018-10-14] MEDS: ondansetron 4mg rapidly disintigrating tab PO PRN (18:21)
[2018-10-14] MEDS: hydrOXYzine 25 MG tablet PO PRN (20:53)
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
[2018-10-15 08:00] VITALS: BP 130/84
[2018-10-15] MEDS: cloNIDine 0.1 mg tablet PO SCH ×2 (08:00→20:00)
[2018-10-15] MEDS: gabapentin 400mg capsule PO SCH ×3 (08:53→20:22)
[2018-10-15] MEDS: duloxetine 20mg capsule.DR PO SCH (08:53)
[2018-10-15] MEDS: levetiracetam 250mg tablet PO SCH (08:54)
[2018-10-15] MEDS: FLUoxetine 10mg capsule PO SCH (08:55)
[2018-10-15] MEDS: nicotine 21mg patch - 24 hr TD SCH (08:58)
[2018-10-15] MEDS: amLODIPine 5mg tablet PO SCH (09:00)
--- NOTE | 2018-10-15 14:37 | NUR ---
DISCHARGE PLANNING: [facility]/transitional [facility]. SW left message requesting return contact. Joyce Tobin, Automotive Lot Attendant ENROLLMENT ADVISOR [id number] Supervised by Dileep Ivy, [id number]
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
[2018-10-15] MEDS: ondansetron 4mg rapidly disintigrating tab PO PRN (17:03)
[2018-10-15] MEDS: loperamide 2mg capsule PO PRN (17:03)
[2018-10-15 19:42] VITALS: BP 103/76
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
[2018-10-16 07:32] VITALS: BP 104/68
[2018-10-16] MEDS: cloNIDine 0.1 mg tablet PO SCH ×2 (08:00→20:00)
[2018-10-16] MEDS: gabapentin 400mg capsule PO SCH ×3 (08:16→20:26)
[2018-10-16] MEDS: nicotine 21mg patch - 24 hr TD SCH ×2 (08:16→08:58)
[2018-10-16] MEDS: levetiracetam 250mg tablet PO SCH (08:16)
[2018-10-16] MEDS: FLUoxetine 10mg capsule PO SCH (08:17)
[2018-10-16] MEDS: amLODIPine 5mg tablet PO SCH (08:17)
[2018-10-16] MEDS: duloxetine 20mg capsule.DR PO SCH (08:17)
[2018-10-16] MEDS: loperamide 2mg capsule PO PRN ×2 (08:23→16:39)
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
[2018-10-17 07:31] VITALS: BP 118/82
[2018-10-17] MEDS: amLODIPine 5mg tablet PO SCH (07:55)
[2018-10-17] MEDS: duloxetine 20mg capsule.DR PO SCH (07:56)
[2018-10-17] MEDS: levetiracetam 250mg tablet PO SCH (07:56)
[2018-10-17] MEDS: nicotine 21mg patch - 24 hr TD SCH ×2 (07:56→08:16)
[2018-10-17] MEDS: FLUoxetine 10mg capsule PO SCH (07:56)
[2018-10-17] MEDS: gabapentin 400mg capsule PO SCH ×3 (07:56→20:15)
[2018-10-17] MEDS: cloNIDine 0.1 mg tablet PO SCH (08:00)
[2018-10-17] MEDS: loperamide 2mg capsule PO PRN ×2 (08:20→19:27)
[2018-10-17] MEDS: ondansetron 4mg rapidly disintigrating tab PO PRN ×2 (12:29→19:27)
--- NOTE | 2018-10-17 14:52 | NUR ---
DISCHARGE PLANNING BRANDO made TC to Juan C Pearce, Director of [facility] at , requesting return contact regarding a scholarship for payment of tx services. BRANDO also provided contact information for a person in charge of [facility] writing w[facility]. BRANDO met w/ pt, informing him of current lack of resources and instructed pt to contact [facility] to establish new pt services. SW will then contact the facility and schedule discharge appointments. BRANDO contacted Waldo, Stunt Double of [facility] ([facility]), requesting inpatient services. SW informed [facility] cannot provide services to pt due to 290 registration. BRANDO contacted Tony from [facility] to request services for pt. SW informed that pt cannot be served due to 290 registration. BRANDO contacted pt Ship[employer] Helper, Olivia Parr, who reports there are no contracted services for [facility] or other tx facilities for persons w/ 290 registration. BRANDO contacted [employer], Elias Burden at [phone], who reports he is not aware of any tx or housing resources available for this pt or other persons w/ 290 registration. He reports he ran into this difficulty when overseeing pt's community supervision case in past. He provided SW w/ contract workforce development assistant Natasha Rodrigues at [phone], and [facility] her for contract development. . BRANDO informed tx and pt of SW efforts. BRANDO will continue working toward a scholarship for pt to enter tx. Joyce Tobin, Field Talent Qualification Specialist POST GRADUATE INTERNSHIP [id number] Supervised by Dileep Ivy, [id number]
--- NOTE | 2018-10-17 14:59 | NUR ---
Initial: Patient with good appetite, eating 75-100% of regular diet, meeting nutrition needs. patient having diarrhea since 10/14 as documented in GI symptoms, is receiving Imodium prn last given 10/17. Also with nausea and vomiting, despite that patient is able to keep meals down. Will continue to follow. Recommend: 1. continue regular diet 2. continue imodium as needed for diarrhea 3. weekly wts Addendum: 10/17/18 at [address] Amended: Links added.
--- NOTE | 2018-10-17 16:38 | NUR ---
Addition to note: SW contacted Sloan at [facility], who reports he does not have bed availability for pt. Joyce Tobin, Instrument Assembly Supervisor WIRE RIGGER [id number] Supervised by Dileep Ivy, [id number]
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
[2018-10-17 19:18] VITALS: BP 104/83
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
[2018-10-18 08:00] VITALS: BP 110/80
[2018-10-18] MEDS: FLUoxetine 10mg capsule PO SCH (08:06)
[2018-10-18] MEDS: duloxetine 20mg capsule.DR PO SCH (08:06)
[2018-10-18] MEDS: amLODIPine 5mg tablet PO SCH (08:07)
[2018-10-18] MEDS: gabapentin 400mg capsule PO SCH (08:08)
[2018-10-18] MEDS: levetiracetam 250mg tablet PO SCH (08:08)
[2018-10-18] MEDS: nicotine 21mg patch - 24 hr TD SCH (08:09)
[2018-10-18] MEDS ORDERED: FLUO10CA18 PO (09:27)
[2018-10-18] MEDS ORDERED: AMLO5TAB16 PO (09:27)
[2018-10-18] MEDS ORDERED: GABA600T13 PO (09:27)
[2018-10-18] MEDS ORDERED: LEVE250T PO (09:27)
[2018-10-18] MEDS ORDERED: NICO-687 TD (09:27)
[2018-10-18] MEDS ORDERED: DULO20CA50 PO (09:27)
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
== END 2018-10-18 11:10 | disposition home or self-care (01) | DRG 754 ==
LOC: ADULT MH 16:16
PROVIDERS: ADMIT Psychiatry & Neurology Psychiatry; ATTEND Psychiatry & Neurology Psychiatry
DX: F32.9 Major depressive disorder, single episode, unspecified (principal); G40.909 Epilepsy, unspecified, not intractable, without status epilepticus; R45.851 Suicidal ideations; F43.10 Post-traumatic stress disorder, unspecified; F15.10 Other stimulant abuse, uncomplicated; B19.20 Unspecified viral hepatitis C without hepatic coma; F51.5 Nightmare disorder; I10 Essential (primary) hypertension; Z59.0 Homelessness; Z87.891 Personal history of nicotine dependence; Z91.19 Patient's noncompliance with other medical treatment and regimen; Z79.899 Other long term (current) drug therapy; Z91.5 Personal history of self-harm; Z90.49 Acquired absence of other specified parts of digestive tract; Z56.0 Unemployment, unspecified
CPT/HCPCS: 36415; 80061; 83036; 85025; 87081; 99285; Z7610

== ENCOUNTER 2019-01-30 09:25 | Emergency (ER) | payer MEDICAID ==
[~2019-01-30] VITALS: Ht 175.3 cm; Wt 86.5 kg
[~2019-01-30 09:25] MED LIST changes: -CARB100T15 PO; +FLUO10CA PO; -FLUO10CA18 PO; -GABA600T13; +GABA600T13 PO; -IBUP-1986 PO; -NAPR-56 PO
[2019-01-30] MEDS ORDERED: LORazepam 1 MG tablet PO ONE (10:10)
[2019-01-30 10:21] LABS: BASOPHILS % (AUTO) 0.3 % (0-1); EOSINOPHILS # (AUTO) 0.1 X10'3 (0-0.9); EOSINOPHILS % (AUTO) 1.4 % (0-6); HEMATOCRIT 40.9 % (42.0-52.0); HEMOGLOBIN 14.2 g/dl (14.0-17.9); LYMPHOCYTES # (AUTO) 1.9 X10'3 (1.1-4.8); LYMPHOCYTES % (AUTO) 28.8 % (21-51); MEAN CORPUSCULAR HGB CONC 34.6 g/dL (33.0-36.5); MEAN CORPUSCULAR VOLUME 92.5 FL (78-98); MEAN PLATELET VOLUME 7.9 FL (7.4-10.4); MONOCYTES # (AUTO) 0.6 X10'3 (0-0.9); MONOCYTES % (AUTO) 9.4 % (2-12); NEUTROPHILS # (AUTO) 4.1 X10'3 (1.8-7.7); NEUTROPHILS % (AUTO) 60.1 % (42-75); PLATELET COUNT 283 X10'3 (140-440); RED BLOOD COUNT 4.43 X10'6 (4.70-6.10); RED CELL DISTRIBUTION WIDTH 14.1 % (11.5-14.5); WHITE BLOOD COUNT 6.8 X10'3 (4.5-11.0)
[2019-01-30 10:34] LABS: ALANINE AMINOTRANSFERASE 42 U/L (12-78); ALBUMIN 4.5 G/DL (3.4-5.0); ALBUMIN/GLOBULIN RATIO 1.4 (1.1-1.5); ALKALINE PHOSPHATASE 68 IU/L (46-116); ANION GAP 7 (8-16); ASPARTATE AMINO TRANSFERASE 43 U/L (10-37); BLOOD UREA NITROGEN 18 MG/DL (7-18); BUN/CREATININE RATIO 19.6 (5.4-32.0); CHLORIDE 105 MMOL/L (99-107); CREATININE 0.92 MG/DL (0.60-1.10); GLUCOSE 95 MG/DL (70-104); POTASSIUM 3.5 MMOL/L (3.5-5.1); SODIUM 143 MMOL/L (135-145); TOTAL CARBON DIOXIDE 30.8 MMOL/L (24-32); TOTAL PROTEIN 7.8 G/DL (6.4-8.2); eGFR > 90 ML/MIN
[2019-01-30 10:44] LABS: ETHANOL < 0.010 GM/DL (0.0-0.010)
[2019-01-30 11:19] LABS: CLARITY,URINE CLEAR (Clear); COLOR,URINE AMBER (Yellow); GLUCOSE, URINE NEGATIVE (Neg); KETONES,URINE 40 mg/dl (Neg); LEUKOCYTE ESTERASE ,URINE NEGATIVE (Neg); NITRITES, URINE NEGATIVE (Neg); OCCULT BLOOD,URINE NEGATIVE (Neg); PROTEIN,URINE TRACE mg/dl (Neg)
[2019-01-30 11:23] LABS: UA COLLECTION TYPE CLN CATCH MIDSTREAM
[2019-01-30 11:27] LABS: MUCUS STRANDS MODERATE /LPF (Neg); SQUAMOUS EPITHELIAL CELL,UR MODERATE /LPF (FEW); URINE AMPHETAMINE SCREEN POSITIVE (Neg); URINE BARBITUATE SCREEN NEGATIVE (Neg); URINE BENZODIAZEPINES SCREEN NEGATIVE (Neg); URINE CANNABINOID SCREEN POSITIVE (Neg); URINE COCAINE SCREEN NEGATIVE (Neg); URINE METHADONE SCREEN NEGATIVE (Neg); URINE OPIATE SCREEN NEGATIVE (Neg); URINE PHENCYCLIDINE SCREEN NEGATIVE (Neg)
[2019-01-30 11:31] LABS: BACTERIA,URINE 1+ /HPF (Neg); RBC,URINE NONE SEEN /HPF (0-2); WBC CLUMPS,URINE FEW /HPF (NEGATIVE)
[2019-01-30 11:33] LABS: SPERM MODERATE /HPF (NEGATIVE)
[2019-01-30] MEDS ORDERED: NICO-687 TOP (13:20)
[2019-01-30] MEDS ORDERED: FLUO40CA PO (13:21)
[2019-01-30] MEDS ORDERED: DULO60CA65 PO (13:22)
[2019-01-30] MEDS ORDERED: GABA600T13 PO (13:23)
[2019-01-30] MEDS ORDERED: LEVE10006 PO (13:24)
--- NOTE | 2019-01-30 14:50 | NUR ---
PT TRANSFERED FROM ER16 TO OF22. PT BECAME AGGITATED WHILE LISTENING TO SBAR REPORT, STATING "I DONT NEED THIS CRAP AND BEING TREATED THIS WAY... IM NOT A DRUG ADDICT." PT WAS REASSURED THAT HE WAS NOT BEING DISRESPECTED AND HE WAS NOT BEING ACCUSED OF BEING A DRUG ADDICT, THAT I WAS JUST RECEIVING REPORT AND GOING OVER HIS LABS. PT WAS INFORMED THAT HIS TOX SCREEN WAS POSITIVE FOR THC AND METH, PT DID ADMIT TO USING METH 2 DAYS AGO AFTER BEING KICKOUT OF HIS TREATMENT [facility]ATA IN [place] JUST TO STAY AWAKE AND GET BACK HOME TO [place]. ASKED PT IF HE HAS BEEN HAVING ANY SI THOUGHTS IN THE LAST 30 DAYS, PT STATES THAT HE HAD. PT ALSO STATED THAT HE ATTEMPTED TO CHOKE HIMSELF WITH A TELEPHONE CORD, WHILE UNDER A BLANKES IN ER16, PT POINTED TO A RED LEANDRO ACROSS HIS THROAT TO SHOW HIS ATTEMPT. TELEGRAPH OPERATOR, FABRICIO EASTON, CALLED AND DISCUSSED PT'S STATEMENT. G RN STATED THAT PT'S ROOM WAS COMPLETELY STRIPPED, PT HAD A SITTER AT ROOMSIDE, PT WAS GIVEN A PHONE WITH SUPERVISION AND PHONE WAS REMOVED FROM PT WHEN HE WAS DONE WITH HIS PHONE CALL, PT HAD NO BLANKET IN HIS ROOM AND THE PT SPENT MOST OF HIS TIME IN ER16 ON THE FLOOR WITH HIS HANDS BEHIND HIS BACK. [facility] RN WAS EMPHATIC THAT PT WAS WATCHED CAREFULLY AND AT NO TIME DID HE ATTEMT TO HURT HIMSELF WHILE IN ER16. PT IS CURRENTLY RESTING QUIETLY, WARM BLANKET GIVEN AND PITCHER OF WATER AT BEDSIDE AT PT'S REQUEST.
[2019-01-30] MEDS: gabapentin 400mg capsule PO SCH ×2 (15:36→23:42)
--- NOTE | 2019-01-30 16:18 | NUR ---
Patient given medication. Thanked nursing staff for saying his name while approaching him. He states he can be "jumpy". Patient took medication without events. Patient is currently laying on his stomach with a pillow over his head.
--- NOTE | 2019-01-30 16:30 | NUR ---
Patient asking "will they give me my clothes if I want to walk out of here?" Patient is informed that he is unable to leave and his clothes will not be given to him at this time. Security called for a non-emergent stand by. Elopement band placed on patient.
--- NOTE | 2019-01-30 16:32 | NUR ---
PT THREATENING TO ELOPE AND MAKING STATEMENT OF SI ; "WEATHER I LEAVE TODAY, TOMORROW OR THE NEXT DAY IM GOING TO DO IT, ITS OVER, IM DONE". DELMIS FROM [facility] NOTIFIED. Addendum: 01/30/19 at 1635 by LUCHO ELOPEMENT BAND APPLIED TO PT'S RT WRIST
[2019-01-30] MEDS ORDERED: nicotine 21mg patch - 24 hr TD SCH (17:00)
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
[2019-01-30] MEDS: levetiracetam 250mg tablet PO SCH (20:25)
--- NOTE | 2019-01-30 22:03 | NUR ---
The patient appears to be sleeping
[2019-01-30] MEDS ORDERED: ibuprofen tablet 400 MG TABLET PO ONE (23:35)
--- NOTE | 2019-01-30 23:44 | NUR ---
The patient complained of neck pain and Dr. Abraham made aware and order received.
--- NOTE | 2019-01-31 01:44 | NUR ---
The patient was laying on floor by his bed and was redirected to get back up on his bed. He did not fall but felt he would be more comfortable on the floor
--- NOTE | 2019-01-31 03:53 | NUR ---
The patient awake and making veiled threats to elope and act out violently with the security staff. THe patient was reassured of his safety and that staff were trying to help him until he is placed in a psychiatric facility. He at times is superficially pleasant but quickly and become agitated and threatening. He was offered medication to help him relax and be more comfortable but at this time he is refusing offer of medications and insists he is not agitated or anxious. jelly filter tender made aware and security staff made aware of patient threats of violence "if I'm surprised by security" Currently he is mumbling to himself in angry tones.
--- NOTE | 2019-01-31 03:59 | NUR ---
The patient has ripped his elopement band off sometime after midnight.
[2019-01-31] MEDS ORDERED: LORazepam 2 mg/ml vial IM ONE (04:20)
[2019-01-31] MEDS ORDERED: haloperidol lactate 5mg/ml inj IM ONE (04:20)
[2019-01-31] MEDS ORDERED: diphenhydrAMINE 50 mg/ml inj IM ONE (04:20)
--- NOTE | 2019-01-31 04:51 | NUR ---
The patient continues to yell at staff and make vulgar comments towards the staff. He is refusing any interventions.
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
[2019-01-31 05:25] VITALS: BP 132/80
--- NOTE | 2019-01-31 06:20 | NUR ---
Malachi sleeping on left side. No distress observed. Continue to monitor.
[2019-01-31] MEDS ORDERED: duloxetine 30mg CAPSULE.DR PO SCH (08:00)
[2019-01-31] MEDS ORDERED: FLUoxetine 20mg capsule PO SCH (08:00)
--- NOTE | 2019-01-31 08:10 | NUR ---
Breakfast is here but RN allowed patient to sleep. Patient was medicated and restraints removed aroung 0530. Continue to monitor.
--- NOTE | 2019-01-31 09:05 | NUR ---
Patient sitting up and eating. No distress observed. Sitter at side. Continue to monitor.
[2019-01-31] MEDS: gabapentin 400mg capsule PO SCH (09:26)
[2019-01-31] MEDS: levetiracetam 250mg tablet PO SCH (09:26)
--- NOTE | 2019-01-31 09:45 | NUR ---
Breaking primary RN, PT has sitter present, no agitation observed, pt eyes open, awake and aware
--- NOTE | 2019-01-31 09:58 | NUR ---
registration called to see if pt can have visitors, I requested that they wait for the primary RN to return for her to eval if appropriate
--- NOTE | 2019-01-31 10:44 | NUR ---
[facility] with patient to straighten out patient's insurance. No distress. Sitter at side. Continue to monitor.
--- NOTE | 2019-01-31 11:20 | NUR ---
Patient laying down with eyes clothes. No distress observed. Continue to monitor.
--- NOTE | 2019-01-31 12:58 | NUR ---
Patient sitting and eating lunch. Sitter at bedside. Continue to monitor.
== END 2019-01-31 14:15 ==
LOC: ER 09:26
DX: F29 Unspecified psychosis not due to a substance or known physiological condition (principal); F43.10 Post-traumatic stress disorder, unspecified; F15.10 Other stimulant abuse, uncomplicated; I10 Essential (primary) hypertension; G89.29 Other chronic pain; F32.9 Major depressive disorder, single episode, unspecified; F12.90 Cannabis use, unspecified, uncomplicated; F15.90 Other stimulant use, unspecified, uncomplicated; Z90.49 Acquired absence of other specified parts of digestive tract; Z98.890 Other specified postprocedural states; Z56.0 Unemployment, unspecified; Z79.899 Other long term (current) drug therapy
CPT/HCPCS: 36415; 80053; 80305; 80320; 81001; 84443; 85025; 96372; 99285; J1200; J1630; J2060

== ENCOUNTER 2019-02-05 12:50 | Emergency (ER) | payer MEDICAID ==
[~2019-02-05] VITALS: Ht 167.6 cm; Wt 86.5 kg
[~2019-02-05 12:50] MED LIST changes: -AMLO5TAB16 PO; -DULO20CA50 PO; +DULO60CA65 PO; -FLUO10CA PO; +FLUO40CA PO; +LEVE10006 PO; -LEVE250T PO; -NICO-687 TD; +NICO-687 TOP
[2019-02-05] MEDS ORDERED: TETanus/Pertussis (Acell)/Diphther VAC/PF (Tdap-Adult) 0.5ml syringe IMVAC ONE (13:35)
[2019-02-05] MEDS ORDERED: LIDOcaine 1% W/epiNEPHrine 1:200,000 10ml vial IJ ONE (13:35)
[2019-02-05] MEDS ORDERED: LIDOcaine 1.5% w/epinephrine 1:200,000 5ml ampul IJ ONE (13:35)
[2019-02-05] MEDS ORDERED: nicotine 21mg patch - 24 hr TD ONE (13:55)
[2019-02-05 14:09] LABS: BASOPHILS % (AUTO) 0.4 % (0-1); EOSINOPHILS # (AUTO) 0.1 X10'3 (0-0.9); EOSINOPHILS % (AUTO) 0.5 % (0-6); HEMATOCRIT 46.3 % (42.0-52.0); LYMPHOCYTES # (AUTO) 1.9 X10'3 (1.1-4.8); LYMPHOCYTES % (AUTO) 17.7 % (21-51); MEAN CORPUSCULAR HEMOGLOBIN 32.3 PG (27.0-31.0); MEAN CORPUSCULAR HGB CONC 34.7 g/dL (33.0-36.5); MEAN CORPUSCULAR VOLUME 93.3 FL (78-98); MEAN PLATELET VOLUME 8.5 FL (7.4-10.4); MONOCYTES # (AUTO) 0.8 X10'3 (0-0.9); MONOCYTES % (AUTO) 7.4 % (2-12); NEUTROPHILS # (AUTO) 8.1 X10'3 (1.8-7.7); PLATELET COUNT 307 X10'3 (140-440); RED BLOOD COUNT 4.96 X10'6 (4.70-6.10); RED CELL DISTRIBUTION WIDTH 13.6 % (11.5-14.5); WHITE BLOOD COUNT 10.9 X10'3 (4.5-11.0)
[2019-02-05 14:28] LABS: ALANINE AMINOTRANSFERASE 43 U/L (12-78); ALBUMIN 4.4 G/DL (3.4-5.0); ALBUMIN/GLOBULIN RATIO 1.1 (1.1-1.5); ALKALINE PHOSPHATASE 77 IU/L (46-116); ANION GAP 10 (8-16); ASPARTATE AMINO TRANSFERASE 28 U/L (10-37); BILIRUBIN,TOTAL 1.4 MG/DL (0.1-1.0); BLOOD UREA NITROGEN 18 MG/DL (7-18); CALCIUM 9.4 MG/DL (8.5-10.1); CHLORIDE 103 MMOL/L (99-107); GLUCOSE 87 MG/DL (70-104); POTASSIUM 3.7 MMOL/L (3.5-5.1); SODIUM 142 MMOL/L (135-145); TOTAL CARBON DIOXIDE 29.3 MMOL/L (24-32); TOTAL PROTEIN 8.3 G/DL (6.4-8.2); eGFR 67 ML/MIN
[2019-02-05 14:31] LABS: ETHANOL < 0.010 GM/DL (0.0-0.010)
[2019-02-05] MEDS ORDERED: LORazepam 1 MG tablet PO ONE ×2 (17:10→19:00)
--- NOTE | 2019-02-05 18:30 | NUR ---
Recieved report from Daniela, the day shift nurse. She recieved additional sedation orders for this patient but forgot to place orders. This patient was very labile then agreed to relax and sat back in bed.
[2019-02-05 18:44] LABS: CLARITY,URINE CLOUDY (Clear); COLOR,URINE AMBER (Yellow); GLUCOSE, URINE NEGATIVE (Neg); KETONES,URINE NEGATIVE (Neg); LEUKOCYTE ESTERASE ,URINE TRACE (Neg); NITRITES, URINE NEGATIVE (Neg); OCCULT BLOOD,URINE NEGATIVE (Neg); PROTEIN,URINE 30 mg/dl (Neg)
[2019-02-05 18:45] LABS: UA COLLECTION TYPE CLN CATCH MIDSTREAM
--- NOTE | 2019-02-05 18:50 | NUR ---
PO medications for sedation ordered. (Benadryl, Ativan, and Haldol) Patient is resting with labile moments. He refuses to take PO meds now.
[2019-02-05 18:53] LABS: MUCUS STRANDS MANY /LPF (Neg); SQUAMOUS EPITHELIAL CELL,UR FEW /LPF (FEW)
[2019-02-05 18:54] LABS: CELLULAR CAST 0-4 /LPF (NEGATIVE); COARSE GRANULAR CAST 0-3 /LPF (NEGATIVE); TRANSITIONAL EPI CELLS,URINE FEW /HPF
[2019-02-05 18:56] LABS: SPERM FEW /HPF (NEGATIVE)
[2019-02-05 18:57] LABS: BACTERIA,URINE NONE SEEN /HPF (Neg); RBC,URINE 0-2 /HPF (0-2)
[2019-02-05] MEDS ORDERED: haloperidol 5mg tablet PO ONE (19:00)
[2019-02-05] MEDS ORDERED: diphenhydrAMINE 25mg capsule PO ONE (19:00)
[2019-02-05 19:02] LABS: URINE AMPHETAMINE SCREEN POSITIVE (Neg); URINE BARBITUATE SCREEN NEGATIVE (Neg); URINE BENZODIAZEPINES SCREEN NEGATIVE (Neg); URINE CANNABINOID SCREEN NEGATIVE (Neg); URINE COCAINE SCREEN NEGATIVE (Neg); URINE METHADONE SCREEN NEGATIVE (Neg); URINE OPIATE SCREEN NEGATIVE (Neg); URINE PHENCYCLIDINE SCREEN NEGATIVE (Neg)
[2019-02-05] MEDS ORDERED: LORazepam 2 mg/ml vial IM ONE (19:15)
[2019-02-05] MEDS ORDERED: diphenhydrAMINE 50 mg/ml inj IV ONE (19:15)
[2019-02-05] MEDS ORDERED: haloperidol lactate 5mg/ml inj IM ONE (19:15)
--- NOTE | 2019-02-05 19:20 | NUR ---
Patient has jumped out of bed and became threatening towards staff. Sedation medications are reordered as IM.
--- NOTE | 2019-02-05 19:40 | NUR ---
Patient jumped out of bed again, threatining posture towards security a and other staff. Benadryl 50mg, Ativan 2mg, and Haldol 10 mg given IM. Patient was cooperative with administration.
--- NOTE | 2019-02-05 20:40 | NUR ---
Patient is sleeping low fowlers position. In direct view from nursing station.
--- NOTE | 2019-02-05 21:35 | NUR ---
Patient remains sleeping. Low fowlers position on bed. Frequent rounding for patient and staff safety.
--- NOTE | 2019-02-05 22:26 | NUR ---
Patient sleeping. No distress. Close observation. Patient is snoring.
[2019-02-05] MEDS: levetiracetam 250mg tablet PO SCH (23:51)
--- NOTE | 2019-02-06 02:24 | NUR ---
Patient sleeping on left side, in view from nursing station.
--- NOTE | 2019-02-06 04:14 | NUR ---
Patient sleeping on his left side. In direct view from nursing station.
--- NOTE | 2019-02-06 05:47 | NUR ---
[facility] was called last night at the request of this patient. Patient wanted his collection officer to be notified of his location and he wanted to speak with his PO too. A recording was left by this RN on their recorded line advising that the patient was here on a hold.
--- NOTE | 2019-02-06 07:00 | NUR ---
Report received from SIENNA Iniguez. Pt is resting in bed peacefully at change of shift in the prone position with arms above head. No distress observed.
--- NOTE | 2019-02-06 07:58 | NUR ---
Pt is resting in bed peacefully. No distress observed.
[2019-02-06] MEDS: levetiracetam 250mg tablet PO SCH ×3 (08:00→20:16)
[2019-02-06] MEDS: FLUoxetine 20mg capsule PO SCH ×2 (08:00→09:25)
[2019-02-06] MEDS: duloxetine 30mg CAPSULE.DR PO SCH ×2 (08:00→09:25)
[2019-02-06] MEDS: nicotine 21mg patch - 24 hr TD SCH ×2 (08:00→09:26)
--- NOTE | 2019-02-06 08:59 | NUR ---
Pt continues to be resting in bed peacefully. No distress observed. Pt did not wake up for breakfast. Pt did not want to wake up for medications and declined to take them.
[2019-02-06] MEDS: gabapentin 400mg capsule PO PRN ×2 (09:33→20:16)
--- NOTE | 2019-02-06 10:24 | NUR ---
[facility] at bedside evaluating patient.
--- NOTE | 2019-02-06 11:32 | NUR ---
Pt continues to rest peacefully in bed in the supine position, snoring. No distress observed.
--- NOTE | 2019-02-06 11:32 | NUR ---
Spoke to [place] with [facility]. She is placing Pt on a 5150 hold for DTS and is now looking for placement. Pt is resting in bed peacefully at this time. No distress observed. Will continue to monitor.
--- NOTE | 2019-02-06 12:38 | NUR ---
Pt is snoring in bed at this time. No distress observed.
--- NOTE | 2019-02-06 15:37 | NUR ---
Pt is resting in bed supine, snoring, no distress observed.
--- NOTE | 2019-02-06 23:28 | NUR ---
Pt resting quietly, respirations normal, no s/s of distress.
--- NOTE | 2019-02-07 01:30 | NUR ---
Pt resting quietly, respirations normal, no s/s of distress.
--- NOTE | 2019-02-07 02:30 | NUR ---
Pt resting quietly, respirations normal, no s/s of distress.
--- NOTE | 2019-02-07 03:30 | NUR ---
Pt resting quietly, respirations normal, no s/s of distress.
--- NOTE | 2019-02-07 04:37 | NUR ---
Pt resting quietly, respirations normal, no s/s of distress.
--- NOTE | 2019-02-07 06:49 | NUR ---
Patient sleeping. No distress observed. Continue to monitor.
--- NOTE | 2019-02-07 08:20 | NUR ---
Patient awake and eating breakfast. No distress observed. Continue to monitor.
[2019-02-07] MEDS: duloxetine 30mg CAPSULE.DR PO SCH (08:54)
[2019-02-07] MEDS: FLUoxetine 20mg capsule PO SCH (08:55)
[2019-02-07] MEDS: levetiracetam 250mg tablet PO SCH ×2 (08:55→19:32)
[2019-02-07] MEDS: nicotine 21mg patch - 24 hr TD SCH (08:57)
[2019-02-07] MEDS: gabapentin 400mg capsule PO PRN ×2 (09:00→17:00)
--- NOTE | 2019-02-07 10:40 | NUR ---
Patient sleeping, no distress observed. Continue to monitor.
--- NOTE | 2019-02-07 13:15 | NUR ---
Patient awake and sitting up eating. No distress observed. Continue to monitor.
--- NOTE | 2019-02-07 16:05 | NUR ---
Patient laying supine with eyes open. Patient in no distress. Continue to monitor.
--- NOTE | 2019-02-07 17:40 | NUR ---
Patient seen by Dr Abraham. Verbal order Bactroban.
--- NOTE | 2019-02-07 18:54 | NUR ---
Pt awake and eating evening meal.
[2019-02-07] MEDS: mupirocin 2% ointment 22GM TP SCH (19:32)
--- NOTE | 2019-02-07 20:35 | NUR ---
Pt sleeping, no acute distress noted.
--- NOTE | 2019-02-07 23:52 | NUR ---
Pt has been sleeping, no acute distress noted. Will continue to monitor.
--- NOTE | 2019-02-08 06:03 | NUR ---
Pt slept through remainder of shift with no complaints or episodes of acute distress noted.
--- NOTE | 2019-02-08 06:40 | NUR ---
Patient sleeping on right side. No distress observed. Continue to monitor.
--- NOTE | 2019-02-08 08:10 | NUR ---
Patient awake and sitting up. No distress observed. Continue to monitor.
[2019-02-08] MEDS: FLUoxetine 20mg capsule PO SCH (08:13)
[2019-02-08] MEDS: gabapentin 400mg capsule PO PRN ×3 (08:14→23:29)
[2019-02-08] MEDS: duloxetine 30mg CAPSULE.DR PO SCH (08:15)
[2019-02-08] MEDS: levetiracetam 250mg tablet PO SCH ×2 (08:15→20:10)
[2019-02-08] MEDS: mupirocin 2% ointment 22GM TP SCH ×2 (08:15→20:30)
[2019-02-08] MEDS: nicotine 21mg patch - 24 hr TD SCH (08:16)
--- NOTE | 2019-02-08 09:16 | NUR ---
breaking primary RN. pt is laying on his left side, regular breathing present, no s/s of anxiety or agitation observed
--- NOTE | 2019-02-08 09:30 | NUR ---
Patient still saying he is suicidal and states he will cut his wrists. [facility] Continue to monitor.
--- NOTE | 2019-02-08 09:58 | NUR ---
Patient's 5150 was renewed. Continue to monitor.
--- NOTE | 2019-02-08 13:24 | NUR ---
Patient is sitting upright in bed quietly.
--- NOTE | 2019-02-08 18:35 | NUR ---
ASSUMED CARE OF PATIENT PATIENT WITHOUT CONCERNS AT THIS TIME . UPDATED PLAN OF CARE WITH PATIENT NO QUESTIONS ASKED.
--- NOTE | 2019-02-08 18:40 | NUR ---
PT UP OUT OF BED TO BATHROOM
--- NOTE | 2019-02-08 19:45 | NUR ---
PT THANKED STAFF FOR DINNER AND THEN WENT TO BED
--- NOTE | 2019-02-08 20:45 | NUR ---
PT RESTING ON HIS RIGHT SIDE RESP UNLABORED NO CONCERNS AT THIS TIME
--- NOTE | 2019-02-08 22:33 | NUR ---
PT UP OUT OF BED TO BATHROOM . PT TELLS STAFF WHAT HE IS DOING EACH TIME HE DOES SOMETHING
--- NOTE | 2019-02-08 23:33 | NUR ---
PT COMPLAINS OF DISCOMFORT RATING IT 8-7/10 PT MEDICATED FOR DISCOMFORT
--- NOTE | 2019-02-09 00:01 | NUR ---
PT CURRENTLY ASLEEP ON BACK . RESP UNLABORED WILL CONTINUE TO MONITOR AND REASSESS NEEDED
--- NOTE | 2019-02-09 00:32 | NUR ---
PT SLEEPING PEACFULLY ON BACK RESP UNLABORED WILL CONTINUE TO MONITOR
--- NOTE | 2019-02-09 02:00 | NUR ---
PT UP OUT OF BED TO BATHROOM . STEADY GAIT. PT COROPORATING , FOLLOWING INSTRUCTIONS, ENCOURAGED PT TO GO BACK TO SLEEP . PT VERBALIZED HE WOULD. ROCÍO CONTINUE TO MONITER
--- NOTE | 2019-02-09 03:30 | NUR ---
PT SLEEPING PEACFULLY IN BED ON RIGHT SIDE. RESP UNLABORED ,WILL CONTINUE TO MONITOR
--- NOTE | 2019-02-09 03:59 | NUR ---
PT SLEEPING, SNORING , RESPIRATIONS UNLABORED . WILL CONTINUE TO MONITOR PT
--- NOTE | 2019-02-09 05:42 | NUR ---
PT AWOKE AND ASKED WHAT TIME IT WAS . PT SLEPT MOST OF THE NIGHT GETTING UP TO VOID X3 . UPON SLEEP RESPIRATIONS UNLABORED. UPDATED PLAN OF CARE WITH PATIEN. WILL CONTINUE TO MONITOR
--- NOTE | 2019-02-09 07:40 | NUR ---
Pt awake sitting on edge of bed.
[2019-02-09] MEDS: FLUoxetine 20mg capsule PO SCH (08:05)
[2019-02-09] MEDS: duloxetine 30mg CAPSULE.DR PO SCH (08:06)
[2019-02-09] MEDS: levetiracetam 250mg tablet PO SCH ×2 (08:06→20:15)
[2019-02-09] MEDS: mupirocin 2% ointment 22GM TP SCH ×2 (08:09→20:00)
[2019-02-09] MEDS: nicotine 21mg patch - 24 hr TD SCH (08:09)
[2019-02-09] MEDS: gabapentin 400mg capsule PO PRN ×2 (08:12→16:15)
--- NOTE | 2019-02-09 08:40 | NUR ---
Pt rated his depression at a 10/10 and his anxiety at a 9/10 this morning. He continues to endorse SI. When asked about a plan, pt states that "I can't divulge that." Medicated pt with prn gabapentin 1200 mg at 0812 per his request. Pt stated that he literally gave away all of his possessions because he thought he would be . Pt indicates that he wishes to get out of here so that he can get on with things (meaning finish the job.) Pt has 2 self-inflicted lacerations on his left forearm, salazar intact, no redness, drainage or s/sx of infection.
--- NOTE | 2019-02-09 10:40 | NUR ---
Pt is lying in bed on his left side. He appears to be sleeping.
[2019-02-09] MEDS: hydrOXYzine 25 MG tablet PO PRN (15:27)
--- NOTE | 2019-02-09 15:35 | NUR ---
Pt became somewhat agitated, venting about his back hurting from having to spend so much time in bed. Medicated with Atarax 50 mg @ 1527 for increased anxiety, reminded pt he could have his gabapentin again at 1612. Provided a chair for pt to sit in at bedside to facilitate position changes for back pain relief. Pt calm & cooperative at this time.
--- NOTE | 2019-02-09 16:15 | NUR ---
Can holland in ED - 02/09/19 at 1722 by MEERA Pt sitting up on side of bed coloring on bedside table. Medicated with prn Gabapentin 1200 mg.
--- NOTE | 2019-02-09 16:15 | NUR ---
Pt sitting up on side of bed using coloring book on top of bedside table. Medicated with prn Gabapentin 1200 mg.
--- NOTE | 2019-02-09 18:00 | NUR ---
Pt lying in bed snoring.
--- NOTE | 2019-02-09 18:30 | NUR ---
Assumed care of pt., he is in bed sleeping at this time, rr even and unlabored.
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
--- NOTE | 2019-02-09 20:41 | NUR ---
relieving RN for break, pt is sleeping quietly on bed, resp even and unlabored
--- NOTE | 2019-02-09 22:31 | NUR ---
Pt. sleeping on his back at this time, rr even and unlabored.
--- NOTE | 2019-02-10 00:34 | NUR ---
Pt. continues to sleep, laying on his right side at this time, appears to be resting comfortably.
--- NOTE | 2019-02-10 00:50 | NUR ---
relieving RN for lunch, pt is sleeping quietly on bed, resp even and unlabored,
[2019-02-10] MEDS: gabapentin 400mg capsule PO PRN ×3 (00:56→17:16)
--- NOTE | 2019-02-10 00:59 | NUR ---
pt is awake and asking for med (gabapentin), medicated per MD order, pt is calm and cooperative
--- NOTE | 2019-02-10 02:30 | NUR ---
Pt. continues to sleep, laying on his back at this time, rr even and unlabored.
--- NOTE | 2019-02-10 04:30 | NUR ---
Pt. continues to sleep, will make occassional body adjustments, appears to be resting comfortably.
--- NOTE | 2019-02-10 06:30 | NUR ---
Pt is lying in bed on his left side, appears to be sleeping.
--- NOTE | 2019-02-10 07:59 | NUR ---
Notified Dr Pichardo about pt's c/o constipation, he will order something.
[2019-02-10] MEDS: duloxetine 30mg CAPSULE.DR PO SCH (08:06)
[2019-02-10] MEDS: FLUoxetine 20mg capsule PO SCH (08:06)
[2019-02-10] MEDS: levetiracetam 250mg tablet PO SCH ×2 (08:06→19:58)
[2019-02-10] MEDS: mupirocin 2% ointment 22GM TP SCH ×2 (08:07→19:58)
[2019-02-10] MEDS: nicotine 21mg patch - 24 hr TD SCH (08:10)
[2019-02-10] MEDS ORDERED: docusate sod 100mg capsule PO ONE (08:30)
[2019-02-10] MEDS: ibuprofen tablet 400 MG TABLET PO PRN ×2 (09:12→17:16)
--- NOTE | 2019-02-10 09:12 | NUR ---
Administered prn gabapentin 1200 mg and ibuprofen 400 mg for c/o 10 back pain, also gave first dose of Colace. Pt declined to allow wound care to laceratinons left forearm at this time, stated, "maybe later."
--- NOTE | 2019-02-10 11:00 | NUR ---
Pt in bed lying on his back, appears to be sleeping.
--- NOTE | 2019-02-10 11:40 | NUR ---
Pt allowed wound care to lacerations left forearm, cleansed with NS, coverered with large bandaids, no drainage, redness, or other s/sx of infection.
--- NOTE | 2019-02-10 13:07 | NUR ---
pt given lunch tray and starting to eat
--- NOTE | 2019-02-10 15:00 | NUR ---
Pt is lying in bed on his right side with his eyes closed.
--- NOTE | 2019-02-10 17:00 | NUR ---
Pt requesting prn gabapentin and ibuprofen for back pain.
--- NOTE | 2019-02-10 17:16 | NUR ---
Pt given prn gabapentin 1200 mg and ibuprofen 400 mg for back pain.
--- NOTE | 2019-02-10 19:36 | NUR ---
At change of shift pt lying in bed. Pt spoke from bed asking, "Can I be discharged please." Pt was told that he could talk to [facility] tomorrow. 30 min later patient stated he was hungry and asked for a snack, pt was reminded that he just had dinner about an hour earlier. Pt again stated that he was hungry. Pt was given a left over dinner tray. Pt behavior calm and appropriate at this time.
--- NOTE | 2019-02-10 19:59 | NUR ---
Pt took scheduled medications with no issues. Stated that pain had improved after administration of pain medication. Pt stated that cyst in left axilla was feeling better.
[2019-02-10] MEDS: hydrOXYzine 25 MG tablet PO PRN (20:59)
--- NOTE | 2019-02-10 21:01 | NUR ---
PT IS STATING HE IS FEELING ANXIOUS AND WANTS SOME ATARAX.
--- NOTE | 2019-02-11 01:00 | NUR ---
PT SLEEPING, LYING ON HIS STOMACH WITH BLANKETS COVERING TO HIS WAIST. RR 14 AND UNLABORED. STAFF WITHIN VIEW OF PT AAT.
--- NOTE | 2019-02-11 03:52 | NUR ---
PT CONTINUES TO REST PEACEFULLY.
--- NOTE | 2019-02-11 06:31 | NUR ---
Assumed care of pt. Pt asleep in no apparent distress
--- NOTE | 2019-02-11 07:04 | NUR ---
PT APPEARS TO BE RESTING COMFORTABLY ON HIS BACK, NO S/S OF DISTRESS.
[2019-02-11] MEDS: duloxetine 30mg CAPSULE.DR PO SCH (08:20)
[2019-02-11] MEDS: levetiracetam 250mg tablet PO SCH ×3 (08:20→19:19)
[2019-02-11] MEDS: FLUoxetine 20mg capsule PO SCH (08:20)
[2019-02-11] MEDS: nicotine 21mg patch - 24 hr TD SCH (08:21)
[2019-02-11] MEDS: mupirocin 2% ointment 22GM TP SCH ×2 (08:21→19:20)
[2019-02-11] MEDS: ibuprofen tablet 400 MG TABLET PO PRN ×2 (08:27→17:02)
[2019-02-11] MEDS: hydrOXYzine 25 MG tablet PO PRN ×2 (08:27→19:09)
[2019-02-11] MEDS: gabapentin 400mg capsule PO PRN ×2 (08:27→17:02)
--- NOTE | 2019-02-11 08:32 | NUR ---
Pt laughing and joking with nurse and other pt
--- NOTE | 2019-02-11 09:34 | NUR ---
PTS MOTHER CALLED ASKING FOR AN UPDATE, PT DID NOT WANT HIS INFORMATION SHARED AT THIS TIME. MOTHER UNDERSTANDS.
--- NOTE | 2019-02-11 09:57 | NUR ---
PT APPEARS TO BE RESTING COMFORTABLY ON RIGHT SIDE, NO S/S OF DISTRESS.
--- NOTE | 2019-02-11 10:00 | NUR ---
KAYLA FROM [facility] AT BEDSIDE.
--- NOTE | 2019-02-11 10:01 | NUR ---
Jessica from [facility] at bedside for evaluation
--- NOTE | 2019-02-11 10:42 | NUR ---
Pt up to the bathroom
--- NOTE | 2019-02-11 11:26 | NUR ---
Pt 5150 has been renewed
--- NOTE | 2019-02-11 12:45 | NUR ---
Pt. continues to sleep, laying on his back at this time, rr even and unlabored.
--- NOTE | 2019-02-11 14:09 | NUR ---
Pt asking to be switched to nicotine lozengers
--- NOTE | 2019-02-11 14:18 | NUR ---
Pt helping tech make bed
--- NOTE | 2019-02-11 16:43 | NUR ---
Pt. continues to sleep, laying on his right side at this time, rr even and unlabored.
--- NOTE | 2019-02-11 18:41 | NUR ---
Patient is awake and well oriented. He ate his full dinner. Patient is cooperative with staff at this time.
[2019-02-11] MEDS: NICOTINE POLACRILEX 2 MG LOZENGE BC PRN (19:10)
[2019-02-11] MEDS ORDERED: traZODone 50mg tablet PO ONE (20:40)
[2019-02-11] MEDS ORDERED: traZODone 50mg tablet PO SCH (20:40)
--- NOTE | 2019-02-11 22:00 | NUR ---
Patient had atarax for anxiety. He is compliant with RX meds. Sleeping now, in view from nursing station.
--- NOTE | 2019-02-11 23:00 | NUR ---
Patient is now sleeping quietly. In view from nursing station.
--- NOTE | 2019-02-12 05:50 | NUR ---
Patient sleeping in supine position.
--- NOTE | 2019-02-12 07:30 | NUR ---
Pt resting in bed with eyes closed
[2019-02-12] MEDS: mupirocin 2% ointment 22GM TP SCH ×2 (08:00→20:00)
[2019-02-12] MEDS: levetiracetam 250mg tablet PO SCH (09:03)
[2019-02-12] MEDS: FLUoxetine 20mg capsule PO SCH (09:04)
[2019-02-12] MEDS: nicotine 21mg patch - 24 hr TD SCH (09:04)
[2019-02-12] MEDS: duloxetine 30mg CAPSULE.DR PO SCH (09:04)
[2019-02-12] MEDS: gabapentin 400mg capsule PO PRN ×2 (09:04→17:11)
[2019-02-12] MEDS: ibuprofen tablet 400 MG TABLET PO PRN ×2 (09:04→17:11)
--- NOTE | 2019-02-12 16:30 | NUR ---
Probation at bedside seeing patient
[2019-02-12] MEDS: NICOTINE POLACRILEX 2 MG LOZENGE BC PRN (18:11)
[2019-02-12] MEDS: traZODone 50mg tablet PO SCH (20:00)
--- NOTE | 2019-02-12 22:51 | NUR ---
pt is sleeping, no s/s distress noted, all questions answered.
--- NOTE | 2019-02-13 01:28 | NUR ---
PT IS SLEEPING, NO S/S OF DISTRESS NOTED.
--- NOTE | 2019-02-13 01:59 | NUR ---
PT IS SLEEPING, NO S/S OF DISTRESS NOTED. RR UNLABORED.
--- NOTE | 2019-02-13 03:09 | NUR ---
PT IS SLEEPING, NO S/S OF DISTRESS NOTED. RR UNLABORED.
--- NOTE | 2019-02-13 04:54 | NUR ---
PT IS SLEEPING, NO S/S OF DISTRESS NOTED. RR UNLABORED.
[2019-02-13] MEDS: gabapentin 400mg capsule PO PRN ×2 (05:58→15:31)
[2019-02-13] MEDS: ibuprofen tablet 400 MG TABLET PO PRN ×2 (05:58→15:31)
--- NOTE | 2019-02-13 06:40 | NUR ---
Pt sleeping; blanket ciovering his head; RR even and unlabored.
[2019-02-13] MEDS: mupirocin 2% ointment 22GM TP SCH ×2 (08:00→20:09)
--- NOTE | 2019-02-13 08:30 | NUR ---
Pt up taking his medications and having breakfast. He is upset he was kicked out of the placement in [place].
[2019-02-13] MEDS: duloxetine 30mg CAPSULE.DR PO SCH (08:45)
[2019-02-13] MEDS: NICOTINE POLACRILEX 2 MG LOZENGE BC PRN ×2 (08:46→15:31)
[2019-02-13] MEDS: FLUoxetine 20mg capsule PO SCH (08:46)
[2019-02-13] MEDS: levetiracetam 250mg tablet PO SCH ×2 (08:46→20:09)
[2019-02-13] MEDS: nicotine 21mg patch - 24 hr TD SCH (08:47)
--- NOTE | 2019-02-13 10:18 | NUR ---
Pt talking with staff and making phone calls. He is actively advocating for placement for himself. Pt continues to admit he "messed up" and wishes to return to [place].
--- NOTE | 2019-02-13 11:08 | NUR ---
breaking primary RN, pt is supine in bed, reading a book, no s/s of agitation observed
--- NOTE | 2019-02-13 12:31 | NUR ---
Pt on the phone w/his mother. He has required redirecting numerous times to talk quieter. He is easily redirectable.
--- NOTE | 2019-02-13 14:32 | NUR ---
Pt is sitting on his bed resting. He would like to go back on Saboxone prior to discharge. Will notify BRANDON Kwok.
--- NOTE | 2019-02-13 15:31 | NUR ---
PRN Gabapentin and Motrin administered per pt request
--- NOTE | 2019-02-13 16:00 | NUR ---
Pt upstairs to shower escorted w/2 security guards and NA, Nicki.
--- NOTE | 2019-02-13 16:33 | NUR ---
Pt returned to unit.
[2019-02-13] MEDS: traZODone 50mg tablet PO SCH ×3 (20:09→20:25)
--- NOTE | 2019-02-13 20:37 | NUR ---
The patient is resting on his bed. He stated that he is trying to stay calm and be positive. He is requesting to be placed on suboxone.
[2019-02-13] MEDS: hydrOXYzine 25 MG tablet PO PRN (21:58)
--- NOTE | 2019-02-13 22:42 | NUR ---
The patient complained of not being able to sleep and requested vistaril which was given. He refused the Trazodone at bedtime and stated he wanted it discontinued.
--- NOTE | 2019-02-14 00:36 | NUR ---
The patient appears to be sleeping.
--- NOTE | 2019-02-14 03:03 | NUR ---
The patient appears to be sleeping
--- NOTE | 2019-02-14 05:02 | NUR ---
The patient appears to be sleeping
[2019-02-14] MEDS: gabapentin 400mg capsule PO PRN (05:49)
[2019-02-14] MEDS: ibuprofen tablet 400 MG TABLET PO PRN (05:49)
--- NOTE | 2019-02-14 06:30 | NUR ---
Note lucilleone in EDM - 02/14/19 at 0855 by NIDA Received report from SIENNA Stephen. Pt is layingin the supine positon in bed. Mild mental distress observed. Bilateral hand tremor noted and Pt denies SI/HI, VH, however he does report active AH, the voices say to him "don't fart, and things like that". Will continue to monitor.
--- NOTE | 2019-02-14 06:30 | NUR ---
Report received from SIENNA Stephen. Pt is resting in bed with the light on, reading a book. No distress observed. Coffee provided per Pt request.
[2019-02-14] MEDS: mupirocin 2% ointment 22GM TP SCH (08:00)
--- NOTE | 2019-02-14 08:47 | NUR ---
Pt is resting in bed peacefully at this time, no distress observed.
[2019-02-14] MEDS: levetiracetam 250mg tablet PO SCH (09:06)
[2019-02-14] MEDS: FLUoxetine 20mg capsule PO SCH (09:06)
[2019-02-14] MEDS: duloxetine 30mg CAPSULE.DR PO SCH (09:06)
[2019-02-14] MEDS: nicotine 21mg patch - 24 hr TD SCH (09:07)
--- NOTE | 2019-02-14 10:45 | NUR ---
Spoke to [facility], and he states that the plan is to discharge this patient today. Mother came and visited this patient. No distress observed. Will continue to monitor.
[2019-02-14] MEDS ORDERED: DULO60CA65 PO (12:14)
[2019-02-14] MEDS ORDERED: GABA600T13 PO (12:14)
[2019-02-14] MEDS ORDERED: LEVE10002 PO (12:14)
[2019-02-14] MEDS ORDERED: FLUO40CA PO (12:14)
--- NOTE | 2019-02-14 12:24 | NUR ---
Received orders for discharge for this patient. Currently awaiting transport by father. No distress observed.
--- NOTE | 2019-02-14 13:20 | NUR ---
Pt was discharged ambulating self, accompanied by this ad writer and Pt's father. All personal items were inventoried and in Pt's possession. No distress observed. Pt was given a meal and weather appropriate clothing and footwear. D/C paperwork was discussed with patient. Questions were answered and Pt verbalized understanding. Pt currently denies SI. Isabel removed from the 2 lacerations on the left forearm, no redness, bleeding or drainage noted. Steri strips placed and covered with tegederm. S/Sx of infection and when to seek medical attention were discussed with the patient. Understanding was verbalized. Smoking cessation information offered and Pt declined. Rx papers were given to Pt with instruction that they need to be taken to the pharmacy to be filled.
[2019-02-14 13:30] VITALS: BP 130/79
== END 2019-02-14 13:20 | disposition home or self-care (01) ==
LOC: ER 12:51
DX: S51.812A Laceration without foreign body of left forearm, initial encounter (principal); I10 Essential (primary) hypertension; G89.29 Other chronic pain; F12.90 Cannabis use, unspecified, uncomplicated; F15.90 Other stimulant use, unspecified, uncomplicated; F32.9 Major depressive disorder, single episode, unspecified; Z90.49 Acquired absence of other specified parts of digestive tract; Z98.890 Other specified postprocedural states; Z56.0 Unemployment, unspecified; Z79.899 Other long term (current) drug therapy; Z86.69 Personal history of other diseases of the nervous system and sense organs; X78.8XXA Intentional self-harm by other sharp object, initial encounter; Y93.89 Activity, other specified; Y92.59 Other trade areas as the place of occurrence of the external cause; Y99.8 Other external cause status
CPT/HCPCS: 12002; 36415; 80053; 80305; 80320; 81001; 84443; 85025; 90471; 90715; 96372; 96374; 99285; J1200; J1630; J2060

== ENCOUNTER 2019-03-04 10:36 | Emergency (ER) | payer MEDICAID ==
[~2019-03-04] VITALS: Ht 175.3 cm; Wt 72.7 kg
[~2019-03-04 10:36] MED LIST changes: +LEVE10002 PO
--- NOTE | 2019-03-04 10:50 | NUR ---
Sent to OF room 21 with radhika Gipson.
--- NOTE | 2019-03-04 11:25 | NUR ---
PT REQUESTED PHONE TO CALL HIS MOTHER, CALM CONVERSATION.
--- NOTE | 2019-03-04 12:00 | NUR ---
Assumed care of pt. Pt assessed needs addressed labs drawn. Waiting for UA sample. No apparent distress at this time. Will cont to monitor
--- NOTE | 2019-03-04 12:20 | NUR ---
PT ATTEMPTED TO GIVE A URINE SAMPLE BUT "DOES NOT HAVE TO GO". PT ENCOURAGED TO DRINK FLUIDS. WATER AT BEDSIDE.
[2019-03-04 12:45] LABS: BASOPHILS % (AUTO) 0.4 % (0-1); EOSINOPHILS # (AUTO) 0.1 X10'3 (0-0.9); HEMOGLOBIN 13.7 g/dl (14.0-17.9); LYMPHOCYTES # (AUTO) 1.9 X10'3 (1.1-4.8); LYMPHOCYTES % (AUTO) 24.6 % (21-51); MEAN CORPUSCULAR HEMOGLOBIN 32.2 PG (27.0-31.0); MEAN CORPUSCULAR HGB CONC 34.1 g/dL (33.0-36.5); MEAN CORPUSCULAR VOLUME 94.5 FL (78-98); MEAN PLATELET VOLUME 8.3 FL (7.4-10.4); MONOCYTES # (AUTO) 0.8 X10'3 (0-0.9); MONOCYTES % (AUTO) 9.9 % (2-12); NEUTROPHILS % (AUTO) 64.1 % (42-75); PLATELET COUNT 218 X10'3 (140-440); RED BLOOD COUNT 4.24 X10'6 (4.70-6.10); WHITE BLOOD COUNT 7.8 X10'3 (4.5-11.0)
[2019-03-04 12:56] LABS: ALANINE AMINOTRANSFERASE 84 U/L (12-78); ALBUMIN/GLOBULIN RATIO 1.3 (1.1-1.5); ALKALINE PHOSPHATASE 76 IU/L (46-116); ANION GAP 9 (8-16); ASPARTATE AMINO TRANSFERASE 86 U/L (10-37); BILIRUBIN,TOTAL 1.5 MG/DL (0.1-1.0); BLOOD UREA NITROGEN 21 MG/DL (7-18); BUN/CREATININE RATIO 23.9 (5.4-32.0); CALCIUM 8.9 MG/DL (8.5-10.1); CHLORIDE 103 MMOL/L (99-107); CREATININE 0.88 MG/DL (0.60-1.10); ETHANOL < 0.010 GM/DL (0.0-0.010); GLUCOSE 93 MG/DL (70-104); POTASSIUM 3.5 MMOL/L (3.5-5.1); SODIUM 142 MMOL/L (135-145); TOTAL CARBON DIOXIDE 30.3 MMOL/L (24-32); TOTAL PROTEIN 7.2 G/DL (6.4-8.2); eGFR > 90 ML/MIN
[2019-03-04] MEDS ORDERED: LORazepam 1 MG tablet PO ONE ×2 (13:55→18:45)
--- NOTE | 2019-03-04 13:56 | NUR ---
talked with pt for a few minutes about his situation and let him just talk about how he is feeling and what has been going on because he seems to be getting more anxious and worked up. after letting him talk for a bit he requested some ativan. MD Abraham is ordering this. pt seems a bit better after talking.
[2019-03-04] MEDS ORDERED: DULO-31 PO (14:10)
[2019-03-04] MEDS ORDERED: FLUO20CA39 PO (14:10)
[2019-03-04] MEDS ORDERED: GABA600T13 PO (14:10)
[2019-03-04 14:50] LABS: URINE AMPHETAMINE SCREEN POSITIVE (Neg); URINE BARBITUATE SCREEN NEGATIVE (Neg); URINE BENZODIAZEPINES SCREEN NEGATIVE (Neg); URINE CANNABINOID SCREEN POSITIVE (Neg); URINE COCAINE SCREEN NEGATIVE (Neg); URINE METHADONE SCREEN NEGATIVE (Neg); URINE OPIATE SCREEN NEGATIVE (Neg); URINE PHENCYCLIDINE SCREEN NEGATIVE (Neg)
--- NOTE | 2019-03-04 14:57 | NUR ---
PT PACKET SENT TO [facility].
--- NOTE | 2019-03-04 15:38 | NUR ---
Pt talking to himself and to me about trust. Stating he will not get upset or uncooperative as long as he knows the truth. I have reassured him we are here to hlep him. He sitting on the edge of the bed cont to talk. Security notified that pt is aggravated and here to assess situation. Will cont to monitor
--- NOTE | 2019-03-04 15:43 | NUR ---
ELOPEMENT BAND PLACED ON PTS LEFT WRIST, PT EDUCATED.
--- NOTE | 2019-03-04 15:52 | NUR ---
PT STATES "I SHOULD HAVE CUT MY WRISTS AGAIN". RN AWARE, PT REDIRECTED.
--- NOTE | 2019-03-04 16:15 | NUR ---
Breaking primary RN, pt is in bed talking to staff, no s/s of agitation
--- NOTE | 2019-03-04 16:18 | NUR ---
Patient is upset saying we violated the law by having mental health come to see him.
[2019-03-04 16:46] LABS: CLARITY,URINE CLEAR (Clear); COLOR,URINE YELLOW (Yellow); GLUCOSE, URINE NEGATIVE (Neg); KETONES,URINE >=80 mg/dl (Neg); LEUKOCYTE ESTERASE ,URINE NEGATIVE (Neg); NITRITES, URINE NEGATIVE (Neg); OCCULT BLOOD,URINE NEGATIVE (Neg); PROTEIN,URINE NEGATIVE (Neg)
[2019-03-04 16:48] LABS: UA COLLECTION TYPE CLN CATCH MIDSTREAM
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
[2019-03-04] MEDS ORDERED: haloperidol lactate 5mg/ml inj IM ONE (18:45)
[2019-03-04] MEDS ORDERED: diphenhydrAMINE 25mg capsule PO ONE (18:45)
--- NOTE | 2019-03-04 19:15 | NUR ---
Dr. Medeiros consulted. An order recieved for Benadryl, Haldol, and Ativan. Patient took PO Benadryl and Haldol, the plan is to give patient IM Haldol next as needed.
[2019-03-04] MEDS: levetiracetam 250mg tablet PO SCH (19:41)
--- NOTE | 2019-03-04 20:00 | NUR ---
Patient makes intermittent verbal outbursts, sometimes demanding. Patient calms when directed. Patient making phone call to mother. He is sitting up in bed.
--- NOTE | 2019-03-04 23:22 | NUR ---
Can holland in [facility] - 03/04/19 at 2328 by KAREN Patient is sleeping quietly in low fowlers position.
--- NOTE | 2019-03-04 23:43 | NUR ---
Pt is sleeping on his back at this time with visible rise and fall of respirations. Pt is in line of sight of nursing station. Pt does not show sign of pain or distress at this time.
--- NOTE | 2019-03-05 00:24 | NUR ---
Patient sleeping, low fowlers condition.
--- NOTE | 2019-03-05 01:20 | NUR ---
Patient sleeping quietly on his right side. In view from nursing station. Frequent rounding for patient safety.
--- NOTE | 2019-03-05 02:30 | NUR ---
Patient sleeping quietly, right lateral position in bed. In view from nursing station.
[2019-03-05] MEDS ORDERED: gabapentin 300mg capsule PO ONE (03:12)
--- NOTE | 2019-03-05 03:13 | NUR ---
Patient awakened spontaniously. Neurontin that was held earlier because patient was sedate and asleep was now administered. Plan is to have day shift hold patients 0800 neurontin dose. Patient is now cooperative with staff.
--- NOTE | 2019-03-05 05:38 | NUR ---
Patient moved back from main ER to bed 21 in overflow. Patient awakens, he is well oriented. Patient is soft spoken now and cooperative with staff. No profanity, normal speech. No abvious internal stimuli at this time. Patient exhibits no hallucinations at this time.
--- NOTE | 2019-03-05 06:33 | NUR ---
Assumed care for this patient from SIENNA Iniguez. Patient is resting in bed peacefully on his left side. No distress observed. Will conitnue to monitor.
[2019-03-05] MEDS ORDERED: nicotine 21mg patch - 24 hr TD SCH (08:00)
[2019-03-05] MEDS: gabapentin 300mg capsule PO SCH ×3 (08:00→16:17)
[2019-03-05] MEDS ORDERED: FLUoxetine 20mg capsule PO SCH (08:00)
[2019-03-05] MEDS ORDERED: duloxetine 30mg CAPSULE.DR PO SCH (08:00)
[2019-03-05] MEDS: levetiracetam 250mg tablet PO SCH (08:19)
--- NOTE | 2019-03-05 08:19 | NUR ---
Pt is resting in bed peacefully in the supine position. He took his medications as ordered without incident. No distress observed. Will continue to monitor.
--- NOTE | 2019-03-05 10:16 | NUR ---
Breaking Primary RN, pt is supine in bed, quietly snoring, regular breathing present
--- NOTE | 2019-03-05 10:52 | NUR ---
Patient is resting in bed in the supine position. Patient states that he would like to be discharged. Spoke to Jessica from [facility] and she states that she will reach out to network security officer.
--- NOTE | 2019-03-05 12:04 | NUR ---
Pt is resting in bed on his right side, no distress observed. Will continue to monitor.
--- NOTE | 2019-03-05 13:17 | NUR ---
Spoke to Al at [facility] and he states that he is putting this patient's packet for review by his provider. Pt is currently sitting at edge of bed eating lunch. No distress observed.
[2019-03-05 18:01] VITALS: BP 121/70
--- NOTE | 2019-03-05 18:06 | NUR ---
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 Pt is ambulating self with no distress observed. Pt denies current SI. Tobacco cessation offered to patient. Discharge paperwork reviewed with patient, questions were answered and pt verbalized understanding. All personal items inventoried and in partients possession at time of discharge. Valuables, shoes, and belt in drivers possession.
== END 2019-03-05 18:20 | disposition home or self-care (01) ==
LOC: ER 10:37 → EEVIPCON 10:37 → ER 03-05 18:20
DX: F32.9 Major depressive disorder, single episode, unspecified (principal); F22 Delusional disorders; I10 Essential (primary) hypertension; G89.29 Other chronic pain; F17.200 Nicotine dependence, unspecified, uncomplicated; F12.90 Cannabis use, unspecified, uncomplicated; F15.90 Other stimulant use, unspecified, uncomplicated; Z86.69 Personal history of other diseases of the nervous system and sense organs; Z56.0 Unemployment, unspecified; Z90.49 Acquired absence of other specified parts of digestive tract; Z98.890 Other specified postprocedural states; Z79.899 Other long term (current) drug therapy
CPT/HCPCS: 36415; 80053; 80305; 80320; 81003; 85025; 96372; 99285; J1630; Q0163

== ENCOUNTER 2019-05-03 11:03 | Emergency (ER) | payer MEDICAID ==
[~2019-05-03] VITALS: Ht 175.3 cm; Wt 77.1 kg
[~2019-05-03 11:03] MED LIST changes: +DULO-31 PO; -DULO60CA65 PO; +FLUO20CA39 PO; -FLUO40CA PO; -LEVE10002 PO
[2019-05-03] MEDS ORDERED: CEPH500C5 PO (11:29)
[2019-05-03] MEDS ORDERED: clindamycin phosphate 150mg/ml inj. IM ONE (11:30)
[2019-05-03 11:38] VITALS: BP 136/87
== END 2019-05-03 12:08 | disposition home or self-care (01) ==
LOC: ER 11:04
DX: L03.811 Cellulitis of head [any part, except face] (principal); I10 Essential (primary) hypertension; G89.29 Other chronic pain; F32.9 Major depressive disorder, single episode, unspecified; F17.200 Nicotine dependence, unspecified, uncomplicated; F12.90 Cannabis use, unspecified, uncomplicated; F15.90 Other stimulant use, unspecified, uncomplicated; Z86.69 Personal history of other diseases of the nervous system and sense organs; Z90.49 Acquired absence of other specified parts of digestive tract; Z98.890 Other specified postprocedural states; Z56.0 Unemployment, unspecified; Z79.899 Other long term (current) drug therapy
CPT/HCPCS: 96372; 99283; J3490

== ENCOUNTER 2019-05-08 22:09 | Emergency (ER) | payer MEDICAID ==
[~2019-05-08] VITALS: Ht 175.3 cm; Wt 81.8 kg
[~2019-05-08 22:09] MED LIST changes: +CEPH500C5 PO
[2019-05-08 22:15] VITALS: BP 130/77
[2019-05-10] MEDS ORDERED: BACDS PO (23:22)
== END 2019-05-09 00:37 | disposition home or self-care (01) ==
LOC: ER 22:10
DX: R21 Rash and other nonspecific skin eruption (principal); F15.10 Other stimulant abuse, uncomplicated; I10 Essential (primary) hypertension; G89.29 Other chronic pain; F41.9 Anxiety disorder, unspecified; F32.9 Major depressive disorder, single episode, unspecified; Z86.69 Personal history of other diseases of the nervous system and sense organs; Z90.49 Acquired absence of other specified parts of digestive tract; Z98.890 Other specified postprocedural states; Z59.0 Homelessness; Z56.0 Unemployment, unspecified; Z79.2 Long term (current) use of antibiotics; Z79.899 Other long term (current) drug therapy
CPT/HCPCS: 99281

== ENCOUNTER 2019-05-10 20:29 | Emergency (ER) | payer MEDICAID ==
[~2019-05-10] VITALS: Ht 175.3 cm; Wt 68.0 kg
[2019-05-10 21:46] LABS: BASOPHILS # (AUTO) 0.1 X10'3 (0-0.2); BASOPHILS % (AUTO) 0.8 % (0-1); EOSINOPHILS # (AUTO) 0.2 X10'3 (0-0.9); EOSINOPHILS % (AUTO) 2.3 % (0-6); HEMATOCRIT 35.7 % (42.0-52.0); HEMOGLOBIN 12.4 g/dl (14.0-17.9); LYMPHOCYTES # (AUTO) 2.5 X10'3 (1.1-4.8); LYMPHOCYTES % (AUTO) 28.5 % (21-51); MEAN CORPUSCULAR HGB CONC 34.8 g/dL (33.0-36.5); MEAN CORPUSCULAR VOLUME 91.9 FL (78-98); MONOCYTES # (AUTO) 0.8 X10'3 (0-0.9); MONOCYTES % (AUTO) 9.4 % (2-12); NEUTROPHILS # (AUTO) 5.2 X10'3 (1.8-7.7); PLATELET COUNT 359 X10'3 (140-440); RED BLOOD COUNT 3.89 X10'6 (4.70-6.10); RED CELL DISTRIBUTION WIDTH 13.3 % (11.5-14.5); WHITE BLOOD COUNT 8.8 X10'3 (4.5-11.0)
[2019-05-10 22:09] LABS: ALANINE AMINOTRANSFERASE 53 U/L (12-78); ALBUMIN 3.6 G/DL (3.4-5.0); ALKALINE PHOSPHATASE 79 IU/L (46-116); ANION GAP 3 (8-16); ASPARTATE AMINO TRANSFERASE 59 U/L (10-37); BILIRUBIN,TOTAL 0.7 MG/DL (0.1-1.0); BLOOD UREA NITROGEN 26 MG/DL (7-18); CALCIUM 8.7 MG/DL (8.5-10.1); CHLORIDE 101 MMOL/L (99-107); CREATININE 1.13 MG/DL (0.60-1.10); GLUCOSE 91 MG/DL (70-104); SODIUM 136 MMOL/L (135-145); TOTAL CARBON DIOXIDE 32.4 MMOL/L (24-32); TOTAL PROTEIN 7.1 G/DL (6.4-8.2); eGFR 72 ML/MIN
[2019-05-10 22:22] LABS: ETHANOL < 0.010 GM/DL (0.0-0.010)
--- NOTE | 2019-05-10 22:28 | NUR ---
ASKED PT FOR A URINE SAMPLE AND PT BECAME AGGRESIVE AND YELLING AT STAFF FOR "TALKING WITH HIS MOTHER AND STRESSING HER OUT ABOUT ME". TARAN TAYLOR AT BEDSIDE ATTEMPTING TO CALM PT DOWN AND GIVE PLAN OF CARE WITH NO SUCCESS. SECURITY AT BEDSIDE AND TALKED WITH PT. PT ESCORTED TO BATHROOM WITH SECURITY TO GIVE URINE SAMPLE
[2019-05-10] MEDS ORDERED: LORazepam 1 MG tablet PO ONE (22:30)
[2019-05-10 22:47] LABS: CLARITY,URINE CLEAR (Clear); COLOR,URINE YELLOW (Yellow); GLUCOSE, URINE NEGATIVE (Neg); KETONES,URINE TRACE mg/dl (Neg); LEUKOCYTE ESTERASE ,URINE NEGATIVE (Neg); NITRITES, URINE NEGATIVE (Neg); OCCULT BLOOD,URINE NEGATIVE (Neg); PROTEIN,URINE NEGATIVE (Neg)
[2019-05-10 22:55] LABS: URINE AMPHETAMINE SCREEN POSITIVE (Neg); URINE BARBITUATE SCREEN NEGATIVE (Neg); URINE BENZODIAZEPINES SCREEN NEGATIVE (Neg); URINE CANNABINOID SCREEN POSITIVE (Neg); URINE COCAINE SCREEN NEGATIVE (Neg); URINE METHADONE SCREEN NEGATIVE (Neg); URINE OPIATE SCREEN POSITIVE (Neg); URINE PHENCYCLIDINE SCREEN NEGATIVE (Neg)
[2019-05-10 23:00] LABS: UA COLLECTION TYPE NON-SPECIFIED
[2019-05-10] MEDS ORDERED: BACDS PO (23:22)
[2019-05-11] MEDS ORDERED: gabapentin 400mg capsule PO PRN
[2019-05-11] MEDS ORDERED: nicotine 21mg patch - 24 hr TD SCH ×2 (02:10→08:00)
[2019-05-11] MEDS ORDERED: cephalexin 500mg capsule PO ONE (02:11)
--- NOTE | 2019-05-11 02:42 | NUR ---
Patient sleeping intermittently vs. wandering around his room. Requested to leave stating that he is not suicidal anymore. I explained to him that he may not leave, that he has to wait until morning to speak with someone from [facility].
[2019-05-11] MEDS ORDERED: bacitracin 15gm ointment TP ONE (03:55)
--- NOTE | 2019-05-11 04:24 | NUR ---
Patient is at the door yelling at cryptologic technician technical about wanting to leave. Spoke with the patient at length and attempted to de-escalate him unsuccessfully. He is convinced that his, "special prepared foods service team member" named "agatha" was here and ignoring him and that his mother is here getting information about him against his wishes. Patient requests staff leave and he will calm down. Doors closed and patient returned to bed. Shortly after that he removed his gown and began screaming that he was going to assault staff. Spoke to Dr. Barron about the behavior and medications are ordered. Security called to bedside for stand-by.
[2019-05-11] MEDS ORDERED: haloperidol lactate 5mg/ml inj IM ONE (04:25)
[2019-05-11] MEDS ORDERED: diphenhydrAMINE 50 mg/ml inj IM ONE (04:25)
[2019-05-11] MEDS ORDERED: LORazepam 2 mg/ml vial IM ONE (04:25)
[2019-05-11] MEDS ORDERED: levetiracetam 250mg tablet PO SCH (08:00)
[2019-05-11] MEDS ORDERED: sulfamethoxazole/trimethoprim DS (800/160mg) tablet PO SCH (08:00)
[2019-05-11] MEDS ORDERED: duloxetine 30mg CAPSULE.DR PO SCH (08:00)
[2019-05-11] MEDS ORDERED: cephalexin 500mg capsule PO SCH (08:00)
[2019-05-11] MEDS ORDERED: FLUoxetine 20mg capsule PO SCH (08:00)
[2019-05-11 11:25] VITALS: BP 144/87
[2019-05-20] MEDS ORDERED: BUPR1FIL3 (22:46)
== END 2019-05-11 11:29 ==
LOC: ER 20:30
DX: S91.101A Unspecified open wound of right great toe without damage to nail, initial encounter (principal); S60.512A Abrasion of left hand, initial encounter; S60.511A Abrasion of right hand, initial encounter; S40.812A Abrasion of left upper arm, initial encounter; S40.811A Abrasion of right upper arm, initial encounter; S00.81XA Abrasion of other part of head, initial encounter; R45.851 Suicidal ideations; I10 Essential (primary) hypertension; G89.29 Other chronic pain; F41.9 Anxiety disorder, unspecified; Z90.49 Acquired absence of other specified parts of digestive tract; Z59.0 Homelessness; Z56.0 Unemployment, unspecified; Z98.890 Other specified postprocedural states; Z86.69 Personal history of other diseases of the nervous system and sense organs; Z79.899 Other long term (current) drug therapy; X58.XXXA Exposure to other specified factors, initial encounter; Y93.89 Activity, other specified; Y92.89 Other specified places as the place of occurrence of the external cause; Y99.8 Other external cause status
CPT/HCPCS: 36415; 80053; 80305; 80320; 81003; 85025; 99284

== ENCOUNTER → 2019-05-20 | Emergency (ER) | payer MEDICAID ==
[~2019-05-20] VITALS: Ht 175.3 cm; Wt 80.9 kg
[~2019-05-20] MED LIST changes: +BACDS PO; +BUPR1FIL3; -CEPH500C5 PO
[2019-05-20 18:57] LABS: BASOPHILS % (AUTO) 0.5 % (0-1); EOSINOPHILS # (AUTO) 0.1 X10'3 (0-0.9); EOSINOPHILS % (AUTO) 1.8 % (0-6); HEMATOCRIT 39.1 % (42.0-52.0); HEMOGLOBIN 13.5 g/dl (14.0-17.9); LYMPHOCYTES # (AUTO) 1.6 X10'3 (1.1-4.8); LYMPHOCYTES % (AUTO) 22.5 % (21-51); MEAN CORPUSCULAR HGB CONC 34.4 g/dL (33.0-36.5); MEAN CORPUSCULAR VOLUME 92.9 FL (78-98); MEAN PLATELET VOLUME 8.2 FL (7.4-10.4); MONOCYTES # (AUTO) 0.5 X10'3 (0-0.9); MONOCYTES % (AUTO) 6.4 % (2-12); NEUTROPHILS % (AUTO) 68.8 % (42-75); PLATELET COUNT 301 X10'3 (140-440); RED BLOOD COUNT 4.21 X10'6 (4.70-6.10); RED CELL DISTRIBUTION WIDTH 13.8 % (11.5-14.5); WHITE BLOOD COUNT 7.2 X10'3 (4.5-11.0)
[2019-05-20 19:18] LABS: ALANINE AMINOTRANSFERASE 36 U/L (12-78); ALBUMIN 3.3 G/DL (3.4-5.0); ALBUMIN/GLOBULIN RATIO 0.9 (1.1-1.5); ALKALINE PHOSPHATASE 85 IU/L (46-116); ANION GAP 1 (8-16); ASPARTATE AMINO TRANSFERASE 34 U/L (10-37); BILIRUBIN,TOTAL 0.4 MG/DL (0.1-1.0); BLOOD UREA NITROGEN 14 MG/DL (7-18); BUN/CREATININE RATIO 17.1 (5.4-32.0); CALCIUM 8.4 MG/DL (8.5-10.1); CHLORIDE 105 MMOL/L (99-107); CREATININE 0.82 MG/DL (0.60-1.10); GLUCOSE 119 MG/DL (70-104); POTASSIUM 4.5 MMOL/L (3.5-5.1); SODIUM 139 MMOL/L (135-145); TOTAL CARBON DIOXIDE 33.5 MMOL/L (24-32); eGFR > 90 ML/MIN
[2019-05-20 19:25] LABS: ETHANOL < 0.010 GM/DL (0.0-0.010)
[2019-05-20 20:24] LABS: CLARITY,URINE CLEAR (Clear); COLOR,URINE YELLOW (Yellow); GLUCOSE, URINE NEGATIVE (Neg); KETONES,URINE TRACE mg/dl (Neg); LEUKOCYTE ESTERASE ,URINE SMALL (Neg); NITRITES, URINE NEGATIVE (Neg); OCCULT BLOOD,URINE NEGATIVE (Neg); PROTEIN,URINE NEGATIVE (Neg)
[2019-05-20 20:30] LABS: UA COLLECTION TYPE CLN CATCH MIDSTREAM
[2019-05-20 20:31] LABS: BACTERIA,URINE FEW /HPF (Neg); RBC,URINE NONE SEEN /HPF (0-2); SQUAMOUS EPITHELIAL CELL,UR FEW /LPF (FEW)
[2019-05-20 21:20] LABS: URINE AMPHETAMINE SCREEN POSITIVE (Neg); URINE BARBITUATE SCREEN NEGATIVE (Neg); URINE BENZODIAZEPINES SCREEN NEGATIVE (Neg); URINE CANNABINOID SCREEN POSITIVE (Neg); URINE COCAINE SCREEN NEGATIVE (Neg); URINE METHADONE SCREEN NEGATIVE (Neg); URINE OPIATE SCREEN POSITIVE (Neg); URINE PHENCYCLIDINE SCREEN NEGATIVE (Neg)
--- NOTE | 2019-05-20 23:30 | NUR ---
Pt roomed in bed 26. Med rec completed. Pt answering minimum questions and states he wishes to sleep.
--- NOTE | 2019-05-21 01:00 | NUR ---
Pt resting quietly, respirations normal, no s/s of distress.
--- NOTE | 2019-05-21 02:00 | NUR ---
Pt resting quietly, respirations normal, no s/s of distress.
--- NOTE | 2019-05-21 02:58 | NUR ---
Pt resting quietly, respirations normal, no s/s of distress.
--- NOTE | 2019-05-21 04:00 | NUR ---
Pt resting quietly, respirations normal, no s/s of distress.
--- NOTE | 2019-05-21 05:36 | NUR ---
Pt resting quietly, respirations normal, no s/s of distress.
--- NOTE | 2019-05-21 09:14 | NUR ---
PACKET FAXED [facility]
[2019-05-21] MEDS: gabapentin 300mg capsule PO SCH ×3 (09:36→16:00)
[2019-05-21] MEDS: duloxetine 30mg CAPSULE.DR PO SCH (09:36)
[2019-05-21] MEDS: sulfamethoxazole/trimethoprim DS (800/160mg) tablet PO SCH ×2 (09:36→20:04)
[2019-05-21] MEDS: levetiracetam 250mg tablet PO SCH ×2 (09:36→20:04)
[2019-05-21] MEDS: buprenorphine/naloxone 8MG-2MG SUBlingual film SL SCH ×2 (09:37→20:04)
[2019-05-21] MEDS: nicotine 21mg patch - 24 hr TD SCH (09:37)
[2019-05-21] MEDS: FLUoxetine 20mg capsule PO SCH (09:37)
--- NOTE | 2019-05-21 14:02 | NUR ---
Pharmacy called stating they found marijuana in the gabapentin bottle that was sent to them and brought from home. Pharmacy stated they cannot store in pharmacy and said that either someone has to grape picker bottle or they have to destroy it. Spoke with pt and asked him what he would like to do, pt stated okay to destroy it.
[2019-05-21] MEDS: lactobacillus rhamnosus 10,000 MMU CELLS/CAPSULE PO SCH (20:04)
--- NOTE | 2019-05-22 01:01 | NUR ---
Pt sleeping all shift. Woke up for HS meds pt uncooperative with assessment and mildly hostile "I dont feel like talking" Ate a snack and went back to sleep.
--- NOTE | 2019-05-22 06:18 | NUR ---
pt resting quietly in bed.
--- NOTE | 2019-05-22 07:54 | NUR ---
pt resting quietly in bed.
--- NOTE | 2019-05-22 09:09 | NUR ---
resting quietly in bed.
[2019-05-22] MEDS: sulfamethoxazole/trimethoprim DS (800/160mg) tablet PO SCH ×2 (10:00→19:34)
[2019-05-22] MEDS: lactobacillus rhamnosus 10,000 MMU CELLS/CAPSULE PO SCH ×2 (10:00→19:34)
[2019-05-22] MEDS: duloxetine 30mg CAPSULE.DR PO SCH (10:01)
[2019-05-22] MEDS: levetiracetam 250mg tablet PO SCH ×2 (10:01→19:34)
[2019-05-22] MEDS: gabapentin 300mg capsule PO SCH ×4 (10:01→23:49)
[2019-05-22] MEDS: buprenorphine/naloxone 8MG-2MG SUBlingual film SL SCH ×2 (10:01→19:34)
[2019-05-22] MEDS: FLUoxetine 20mg capsule PO SCH (10:01)
[2019-05-22] MEDS: nicotine 21mg patch - 24 hr TD SCH (10:02)
--- NOTE | 2019-05-22 10:50 | NUR ---
resting quietly in bed. sat up earlier and ate breakfast and took his meds. calm and cooperative.
--- NOTE | 2019-05-22 12:07 | NUR ---
resting quietly in bed.
--- NOTE | 2019-05-22 12:59 | NUR ---
sitting up in bed calm and quiet eating lunch. pt will occationally get up to use the restroom but then lays back down in bed. quiet and pleasant.
--- NOTE | 2019-05-22 15:21 | NUR ---
resting quietly in bed.
--- NOTE | 2019-05-22 16:24 | NUR ---
pt resting quietly in bed.
--- NOTE | 2019-05-22 17:53 | NUR ---
pt resting calm and comfortable in bed.
--- NOTE | 2019-05-22 19:22 | NUR ---
The patient is resting comfortably on his bed. He ate 100% of his dinner.
--- NOTE | 2019-05-22 19:38 | NUR ---
One to one with the patient to assess severity of depressive symptoms and self harm risk. He denies anxiaety but then added, "No anxiety. I just have deep deep depression" Reports continued suicidal thoughts. He was medication compliant. He presents as calm.
--- NOTE | 2019-05-22 20:29 | NUR ---
The patient appears to be resting on her bed.
--- NOTE | 2019-05-22 21:04 | NUR ---
The patient is resting on his bed.
--- NOTE | 2019-05-22 23:55 | NUR ---
The patient is awake and requested/received sandwhich.
--- NOTE | 2019-05-23 01:35 | NUR ---
The patient appears to be sleeping.
--- NOTE | 2019-05-23 04:25 | NUR ---
The patient appears to be sleeping
--- NOTE | 2019-05-23 06:30 | NUR ---
RN received report from SIENNA Stephen and assumed care of pt. Pt. sleeping in bed. Normal R&R of respirations.
--- NOTE | 2019-05-23 08:00 | NUR ---
Pt. awake at bedside eating breakfast. Pt. took all medications. Pt. reports SI with a plan to cut his throat. Pt. is able to contract for safety.
[2019-05-23] MEDS: levetiracetam 250mg tablet PO SCH ×2 (08:20→20:18)
[2019-05-23] MEDS: FLUoxetine 20mg capsule PO SCH (08:21)
[2019-05-23] MEDS: gabapentin 300mg capsule PO SCH ×3 (08:21→23:06)
[2019-05-23] MEDS: sulfamethoxazole/trimethoprim DS (800/160mg) tablet PO SCH ×2 (08:21→20:17)
[2019-05-23] MEDS: duloxetine 30mg CAPSULE.DR PO SCH (08:22)
[2019-05-23] MEDS: lactobacillus rhamnosus 10,000 MMU CELLS/CAPSULE PO SCH ×2 (08:22→20:18)
[2019-05-23] MEDS: buprenorphine/naloxone 8MG-2MG SUBlingual film SL SCH ×2 (08:33→20:18)
[2019-05-23] MEDS: nicotine 21mg patch - 24 hr TD SCH (08:35)
--- NOTE | 2019-05-23 10:00 | NUR ---
Pt. in bed sleeping. Pt. has normal rate and rhythm of respirations.
--- NOTE | 2019-05-23 12:00 | NUR ---
Pt. in bed sleeping. Normal rate and rhythm of respiration noted.
--- NOTE | 2019-05-23 14:00 | NUR ---
Pt. woke up for lunch and then went back to sleep. Rate and rhythm of respirations are normal.
--- NOTE | 2019-05-23 16:00 | NUR ---
Pt. laying in bed. Pt. given afternoon Gabapentin. Pt. continues to report SI with plan to cut his throat with a knife. Pt. is able to contract for safety.
[2019-05-23 17:31] VITALS: BP 118/67
--- NOTE | 2019-05-23 18:00 | NUR ---
Pt. asleep in bed. Normal rate and rhythm of respirations.
--- NOTE | 2019-05-23 20:31 | NUR ---
The patient is resting on his bed. States he continues to feel suicidal and depressed and is not feeling any better than when admitted. He is cooperative with the staff. He is eating and drinking well. He is medication compliant.
--- NOTE | 2019-05-23 21:36 | NUR ---
The patient is resting on his bed and appears to be sleeping
--- NOTE | 2019-05-23 22:35 | NUR ---
The patient appears to be asleep on his bed.
--- NOTE | 2019-05-24 00:11 | NUR ---
The patient appears to be sleeping.
== END ==
LOC: ER 17:35
DX: R45.851 Suicidal ideations (principal); R10.9 Unspecified abdominal pain; I10 Essential (primary) hypertension; G89.29 Other chronic pain; F41.9 Anxiety disorder, unspecified; F32.9 Major depressive disorder, single episode, unspecified; Z90.49 Acquired absence of other specified parts of digestive tract; Z59.0 Homelessness; Z56.0 Unemployment, unspecified; Z79.2 Long term (current) use of antibiotics; Z79.899 Other long term (current) drug therapy; Z86.69 Personal history of other diseases of the nervous system and sense organs
CPT/HCPCS: 36415; 80053; 80305; 80320; 81001; 84443; 85025; 99285

== ENCOUNTER 2019-07-19 14:15 | Inpatient (IN) | payer MEDICAID ==
[2019-07-19] MEDS ORDERED: heparin 10,000 units/1 ML INJ IV ONE (14:25)
[2019-07-19] MEDS ORDERED: LORazepam 2 mg/ml vial IV ONE (15:05)
[2019-07-19] MEDS ORDERED: morphine 2 MG/ML inj. syringe IV ONE (15:05)
--- NOTE | 2019-07-19 15:30 | NUR ---
Pt arrived to PACU by EMS and transferred into Room 2. Hooked up to monitor and ventilator. Modesta TAYLOR present and RT.
--- NOTE | 2019-07-19 16:05 | NUR ---
Pt extubated to comfort care. RT and physician present with RN. Family brought to bedside immediately after per their request. Comfort care meds given per orders and PA present to monitor patient for assessment on further medication administration.
[2019-07-19] MEDS: morphine 10mg/ml inj. IV PRN ×8 (16:06→17:43)
[2019-07-19] MEDS: LORazepam 2 mg/ml vial IV PRN ×6 (16:07→17:30)
[2019-07-19] MEDS ORDERED: ondansetron/PF 4mg/2ml inj IV PRN (16:20)
--- NOTE | 2019-07-19 17:50 | NUR ---
Pt transferred to ICU room 2038 by monitor.
[2019-07-19] MEDS ORDERED: acetaminophen 325mg rectal suppository RC PRN (17:55)
--- NOTE | 2019-07-19 18:10 | NUR ---
Sneha mother was called to notify her of patient status and vital signs as requested. She has requested to be updated when patient's status begins declining significant and would like to be present when he passes. Phone number handed over to shift production supervisor nurse.
[2019-07-19] MEDS ORDERED: acetaminophen 650mg rectal suppository RC PRN (18:21)
[2019-07-19] MEDS ORDERED: FENTANYL-0.9 % NACL/PF 100 ML IV PRN (18:30)
[2019-07-19] MEDS ORDERED: dexmedetomidin/NS 400mcg/100ml 100 ML IV SCH (18:30)
--- NOTE | 2019-07-19 18:30 | NUR ---
Report given to Víctor EL by myself and Donor Abrasive Wheel Molder Malcolm.
--- NOTE | 2019-07-19 18:39 | NUR ---
Patient in room ICU 2038. I have received report from Pat EL as well as Malcolm EL from [facility] and had the opportunity to ask questions and assume patient care.
[2019-07-19] MEDS: dexmedetomidine inj. 400 MCG in dextrose 5%-water 96 ML IV SCH (18:50)
[2019-07-20] VITALS: BP 123/63
[2019-07-20] MEDS: dexmedetomidine inj. 400 MCG in dextrose 5%-water 96 ML IV SCH ×4 (01:49→19:34)
[2019-07-20] MEDS ORDERED: morphine/NS 100mg/100ml bag 100 ML IV SCH (05:05)
[2019-07-20] MEDS ORDERED: CADD PCA waste documentation MC SCH (05:20)
[2019-07-20] MEDS ORDERED: naloxone 0.4 mg/ml inj IV PRN (05:20)
[2019-07-20] MEDS: MORPHINE CADD 5 MG/ML 50ML IV SCH ×10 (06:26→23:00)
--- NOTE | 2019-07-20 06:34 | NUR ---
Morphine CADD started d/t PT being on comfort care. VSS, RR 23. PT has been on Fentanyl and Precedex drips throughout shift. Fentanyl had been stopped now that the Morphine CADD is running, Precedex continues to run and will be titrated down as PT meds are scheduled for this AM. PTs response to painful stimuli is decorticate posturing, does not respond purposely or follow commands. .
--- NOTE | 2019-07-20 06:49 | NUR ---
Problems reprioritized. Patient report given, questions answered & plan of care reviewed with Karan EL.
[2019-07-20] MEDS ORDERED: docusate sod 100mg capsule PO SCH (08:00)
[2019-07-20] MEDS ORDERED: sennosides/docusate sodium tablet PO SCH (08:00)
[2019-07-20 08:14] VITALS: BP 96/47
[2019-07-20] MEDS: LORazepam 1 MG tablet PO SCH ×4 (09:15→22:46)
[2019-07-20] MEDS: levetiracetam-NS 1000mg/100ml 100 ML IV SCH ×2 (09:15→20:00)
--- NOTE | 2019-07-20 13:00 | NUR ---
I have received report from SIENNA Russo and had the opportunity to ask questions.
--- NOTE | 2019-07-20 13:50 | NUR ---
Patient arrived from ICU. Transferred pt with slide board from ICU bed to PCU bed with 3 person assist. Comfortable. BLL, SRx2, heels floated, repositioned. Pt unable to verbalize/non communicable due to head trauma. First set of vitals complete: T 100.6 F BP 145/70 HR 73 R20 02 86 RA, not able to verbally assess pain level, 0/10 non verbal pain assessment. 2 RN skin check completed. CADD pump assessed, running per MD orders. Rectal tube and Farr hung below pt to gravity. Pt comfortable at this time.
--- NOTE | 2019-07-20 14:04 | NUR ---
Patient transferred to 3022 via hospital bed with no belongings.
[2019-07-20 18:00] VITALS: BP 98/50
--- NOTE | 2019-07-20 18:31 | NUR ---
Patient in room PCU 3022. I have received report from SIENNA Corado and had the opportunity to ask questions and assume patient care. Patient is receiving comfort care
--- NOTE | 2019-07-20 18:31 | NUR ---
Problems reprioritized. Patient report given, questions answered & plan of care reviewed with SIENNA Wilkes. Pt comfortable. All patient needs met at this time.
[2019-07-20] MEDS ORDERED: LORazepam 1 MG tablet PO ONE (22:45)
--- NOTE | 2019-07-20 23:26 | NUR ---
Farr ordered placed per protocol for comfort care / hospice.
[2019-07-21] MEDS: MORPHINE CADD 5 MG/ML 50ML IV SCH ×8 (01:00→15:00)
[2019-07-21] MEDS: LORazepam 1 MG tablet PO SCH ×3 (02:04→14:00)
--- NOTE | 2019-07-21 02:42 | NUR ---
Patient becoming agonal. Call mother, Kerri, as per her request.
[2019-07-21 06:00] VITALS: BP 113/52
--- NOTE | 2019-07-21 06:15 | NUR ---
Patient in room PCU 3022. I have received report from KATIE EL and had the opportunity to ask questions and assume patient care.
[2019-07-21] MEDS: levetiracetam-NS 1000mg/100ml 100 ML IV SCH (07:29)
[2019-07-21] MEDS: dexmedetomidine inj. 400 MCG in dextrose 5%-water 96 ML IV SCH (07:29)
[2019-07-21] MEDS ORDERED: scopolamine 1.5mg patch.TD72 TD SCH (11:45)
--- NOTE | 2019-07-21 15:12 | NUR ---
RN IS TO DOCUMENT YES TO ALL APPLICABLE AREAS Pronouncement of : 1. Time Physician Notified:[id number] 2. Date of :07/21/19 3. Time of : 1503 4. DNR/Withdraw life support documented:YES 5. Monitor strip has been placed on chart:YES 6. Assessment process is of one-minute duration and includes following criteria: a) Patient is unresponsive to all stimuli: YES b) Pupils fixed and non-reactive:YES c) Auscultation of precordium reveals absence of heart tones:YES d) Auscultation of lungs reveals absence of breath sounds:YES e) Absence of blood pressure / all vital signs:YES f) QRS complexes are not present on monitor / EKG strip:YES g) Pacer spikes without capture:YES 4. Comments:
--- NOTE | 2019-07-21 15:30 | NUR ---
POST MORTEM CARE DONE. BRYSON, RECTAL TUBE, NG TUBE AND PICC LINE REMOVED WITHOUT DIFFICULTY. MORTUARY NOTIFIED. NOTIFIED. DONOR NETWORK NOTIFIED. MOTHER WAS AT BEDSIDE AT TIME OF .
== END 2019-07-21 17:45 | disposition expired | DRG 59 ==
LOC: EEVIPCON → PACU 14:15 → ICU 2S 18:00 → PCU 3S 07-20 14:01
PROVIDERS: ADMIT Internal Medicine Critical Care Medicine; ATTEND Internal Medicine Critical Care Medicine
DX: G93.1 Anoxic brain damage, not elsewhere classified (principal); R40.20 Unspecified coma; F43.10 Post-traumatic stress disorder, unspecified; B19.20 Unspecified viral hepatitis C without hepatic coma; Z51.5 Encounter for palliative care; F32.9 Major depressive disorder, single episode, unspecified; F15.10 Other stimulant abuse, uncomplicated; G40.909 Epilepsy, unspecified, not intractable, without status epilepticus; I10 Essential (primary) hypertension; J44.9 Chronic obstructive pulmonary disease, unspecified; Z87.891 Personal history of nicotine dependence; Z79.899 Other long term (current) drug therapy; S06.9X6S Unspecified intracranial injury with loss of consciousness greater than 24 hours without return to pre-existing conscious level with patient surviving, sequela
CPT/HCPCS: 87081; 94002; 94760; G0378; J1644; J1953; J2060; J2270; J3010; J7060